=== PATIENT | female | born 1980 ===

== ENCOUNTER 2024-06-02 16:27 | Emergency (ER) | payer MEDICAID, SELFPAY ==
--- OUTSIDE RECORDS SUMMARY | 2024-06-02 19:07 | XMS_ITS ---
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 Generated for Printi ng/Ashley/eTransmitting on:?06/02/2024 07:07 PM EDT
--- OUTSIDE RECORDS SUMMARY | 2024-06-02 19:07 | XMS_ITS | Clinical Summary ---
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 Name Role Phone Unavailable Primary Care Provider Unavailabl e Encounters Date Type Department Care Team Description 04/24/2024 Population Health Risk Score [facility] ([facility]) Department [address] [id number] Provider, Population Health Generic from Last 3 Months Immunizations Name Administration Dates Next Due Hep B, Adolescent or Pediatric 02/20/1996,1995 Hep B, adult 05/27/2009,10/06/1996 IPV 05/27/2009 Influenza, IIV3, injectable 11/06/2012,1 02/27/2010,11/24/2008,2005 Influenza, seasonal, injecta ble, preservative free 11/20/2023,11/09/2013 MMR 10/24/2012,05/27/2009 OPV, Trivalent 12/08/1982 Td (adult), 5 Lf tetanus tox oid, preservative free, adsorbed 12/16/1998 Tdap 11/20/2023,05/10/2009 Varicella 04/18/2015,05/27/2009 Social History Tobacco Use Types Packs/Day Years Used Date Smoking Tobacco: Never Assessed Comments Unknown Sex and Gender Information Value Date Recorded Sex Assigned at Female 11/20/2023 9:25 AM EDT Legal Sex Female 6:56 PM EDT Gender Identity Female 11/20/2023 9:25 AM EDT Sexual Orientation Official Use Only; I nformation not collected 11/20/2023 9:25 AM EDT Last Filed Vital Signs Vital Sign Reading Time Taken Comments Blood Pressure 116/81 12/23/2017 1:57 PM EST Pt c/o left gland pain + some pain in her ear. Pulse 84 12/23/2017 1:57 PM EST Pt c/o left gland pain + some pain in her ear. Temperature - - Respiratory Rate - - Oxygen Saturation 97% 12/23/2017 1:5 7 PM EST Pt c/o left gland pain + some pain in her ear. Inhaled Oxygen Concentration - - Weight 75.1 kg (165 lb 9.6 oz) 12/23/2017 1:57 PM EST Pt c/o left gland pain + some pain in her ear. Height 156.8 cm (5' 1.75 ) 12/23/2017 1 :57 PM EST Pt c/o left gland pain + some pain in her ear. Body Mass Index 30.54 12/23/2017 1:57 PM EST Plan of Treatment Health Maintenance Due Date Last Done Comments Depression Screening 1980 HIV Screening 1981 SDOH Screening 1981 Alcohol/Substance Use Screening 1993 Tobacco Screening 1993 Family Planning (PISQ) 1996 Hepatitis C Screening 09/09/1999 Pap Smear 2002 IPV Vaccines (3 of 3 - 4-dose series) 11/26/2009 05/27/2009, 12/08/1982 Cervical Cancer Screening 09/09/2011 HPV/Cotest 09/09/2011 Mammogram 2021 COVID-19 Vaccine ( - 2023- season) 2023 02/18/2021, 04/15/2020, 03/11/2020 Zoster Vaccines (1 of 2) 09/09/2031 DTaP/Tdap/Td Vaccines (4 - Td or Tdap) 11/19/2033 11/20/2023, 05/10/2009, 12/16/1998 RSV Patients and Patients Aged 60 years or older (1 - 1-dose 75+ series) 2056 Hepatitis B Vaccines Completed 05/27/2009, 10/06/1996, 02/20/1996, Additional history exists Influenza Vaccine Completed 11/20/2023, , 11/06/2012, Additional history exists HIB Vaccines Aged Out No longer eligi ble based on patient's age to complete this topic HPV Vaccines Aged Out No longer eligi ble based on patient's age to complete this topic Hepatitis A Vaccines Aged Out No long er eligible based on patient's age to complete this topic Meningococcal Vaccine Aged Out No adolfo ovidio eligible based on patient's age to complete this topic Pneumococcal Vaccine: Pediatrics (0 to 5 Years) and At-Risk Patients (6 to 49) Years) Aged Out No longer eligible based on patient's age to complete this topic RSV under 20 months Aged Out No longe r eligible based on patient's age to complete this topic Rotavirus Vaccines Aged Out No longer eligible based on patient's age to complete this topic Insurance
--- OUTSIDE RECORDS SUMMARY | 2024-06-02 19:07 | XMS_ITS | Continuity of Care Document ---
Author Organization [facility] Address [address] [place] [address] Phone Care Team Providers Care Licensed Staff Mft Name Role Phone William Marino MD Unavailable Unavailable Allergies, Adverse Reactions, Alerts Substance Reaction Status Criticality Cephalosporins Active No Informatio n Medications Medication Instructions Dosage Effective Dates (start - stop) Status Comments Zepbound 2.5 mg/0.5 mL subcutaneous pen injector inject (2.5MG) by subcutaneous route every week for 4 weeks 2.5 MG - Active trazodone 100 mg tablet take 1 to 2 tablet by oral route at bedtime as needed for insomnia - Active FreeStyle Lancets 28 gauge use to check BG twice daily as directed - Active metformin ER 500 mg tablet,extended release 24hr (osmotic) take 1 tablet by oral route every day with the evening meal 500 MG - Active ketoconazole 2 % topical cream apply by topical route 2 times every day to the affected area(s) as needed for rash Not Available - Active fluticasone propionate 50 mcg/actuation nasal spray,suspension spray 2 sprays by intranasal route every day in each nostril as needed - Active Voltaren Arthritis Pain 1 % topical gel apply (2G) by topical route 2 times every day to the affected area(s) as needed for pain 2 G - Active FreeStyle Lite Meter kit use to check BG daily - Active e11.9 DMT2 FreeStyle Lite Strips use to bg twice daily as directed - Active Alcohol Wipes use to check BG as directed - Active hydroxychloroquine 200 mg tablet take 2 tablets saturday -fridays and take 1 tablet daily saturdays and sundays - Active [facility] Swapna Liu [phone] hydroxychloroquine 200 mg tablet take 2 tablet by oral route sat-sat. take 1 tablet on saturday and saturday - Active [facility] Swapna Liu [phone] Procedures Procedure Date GLYCATED HEMOGLOBIN TEST OFFICE/OUTPATIENT VISIT, EST OFFICE/OUTPATIENT VISIT, EST OFFICE/OUTPATIENT VISIT, EST PHONE E/M BY PHYS 21-30 MIN GLYCATED HEMOGLOBIN TEST OFFICE/OUTPATIENT VISIT, EST OFFICE/OUTPATIENT VISIT, EST OFFICE/OUTPATIENT VISIT, EST Antigen Detect By Immunoassay Tech COVID -19 INFLUENZA ASSAY W/OPTIC STREP A ASSAY W/OPTIC OFFICE/OUTPATIENT VISIT, EST OFFICE/OUTPATIENT VISIT, EST OFFICE/OUTPATIENT VISIT, EST OFFICE/OUTPATIENT VISIT, EST OFFICE/OUTPATIENT VISIT, EST OFFICE/OUTPATIENT VISIT, EST OFFICE/OUTPATIENT VISIT, EST OFFICE/OUTPATIENT VISIT, EST Left W/O Being Seen Clinical Pharmacy GLUCOSE BLOOD TEST OFFICE/OUTPATIENT VISIT, EST OFFICE/OUTPATIENT VISIT, EST Left W/O Being Seen OFFICE/OUTPATIENT VISIT, EST OFFICE/OUTPATIENT VISIT, EST Obtaining screen pap smear DRAINAGE OF SKIN ABSCESS Surgical trays Procedure Only No E/M OFFICE/OUTPATIENT VISIT, EST STREP A ASSAY W/OPTIC OFFICE/OUTPATIENT VISIT, EST MEDICAL SERVICES AFTER HRS OFFICE/OUTPATIENT VISIT, EST OFFICE/OUTPATIENT VISIT, EST URINALYSIS, AUTO, W/O SCOPE OFFICE/OUTPATIENT VISIT, EST OFFICE/OUTPATIENT VISIT, EST INFLUENZA ASSAY W/OPTIC OFFICE/OUTPATIENT VISIT, EST OFFICE/OUTPATIENT VISIT, EST Left W/O Being Seen OFFICE/OUTPATIENT VISIT, EST OFFICE/OUTPATIENT VISIT, EST OFFICE/OUTPATIENT VISIT, EST Left W/O Being Seen AUDIT/DAST, 15-30 MIN OFFICE/OUTPATIENT VISIT, EST OFFICE/OUTPATIENT VISIT, EST GLYCATED HEMOGLOBIN TEST OFFICE/OUTPATIENT VISIT, EST ELECTROCARDIOGRAM, COMPLETE OFFICE/OUTPATIENT VISIT, EST GLYCATED HEMOGLOBIN TEST OFFICE/OUTPATIENT VISIT, EST OFFICE/OUTPATIENT VISIT, EST MEDICAL SERVICES AFTER HRS PREV VISIT, EST, AGE 18-39 OFFICE/OUTPATIENT VISIT, EST OFFICE/OUTPATIENT VISIT, EST OFFICE/OUTPATIENT VISIT, EST MEDICAL SERVICES AFTER HRS PULSE OX OFFICE/OUTPATIENT VISIT, EST MEDICAL SERVICES AFTER HRS PREV VISIT, EST, AGE 18-39 OFFICE/OUTPATIENT VISIT, EST MEDICAL SERVICES AFTER HRS OFFICE/OUTPATIENT VISIT, EST MEDICAL SERVICES AFTER HRS OFFICE/OUTPATIENT VISIT, EST PULSE OX OFFICE/OUTPATIENT VISIT, EST MEDICAL SERVICES AFTER HRS IMMUNIZATION ADMIN CHICKEN POX VACCINE, SC Immunization Only No E/M Required Obtaining screen pap smear OFFICE/OUTPATIENT VISIT, EST STREP A ASSAY W/OPTIC OFFICE/OUTPATIENT VISIT, EST OFFICE/OUTPATIENT VISIT, EST OFFICE/OUTPATIENT VISIT, EST FITTING OF SPECTACLES OFFICE/OUTPATIENT VISIT, EST REFRACTION EYE EXAM & TREATMENT PREVENTIVE COUNSELING, INDIV OFFICE/OUTPATIENT VISIT, EST OFFICE/OUTPATIENT VISIT, EST OFFICE/OUTPATIENT VISIT, EST OFFICE/OUTPATIENT VISIT, EST OFFICE/OUTPATIENT VISIT, EST STREP A ASSAY W/OPTIC OFFICE/OUTPATIENT VISIT, EST FITTING OF SPECTACLES REFRACTION EYE EXAM & TREATMENT PREVENTIVE COUNSELING, INDIV PREVENTIVE COUNSELING, INDIV OFFICE/OUTPATIENT VISIT, EST OFFICE/OUTPATIENT VISIT, EST DRAINAGE OF SKIN ABSCESS Surgical trays OFFICE/OUTPATIENT VISIT, EST OFFICE/OUTPATIENT VISIT, EST OFFICE/OUTPATIENT VISIT, EST PREV VISIT, EST, AGE 18-39 FITTING OF SPECTACLES FITTING OF SPECTACLES REFRACTION EYE EXAM, NEW PATIENT OFFICE/OUTPATIENT VISIT, EST OFFICE/OUTPATIENT VISIT, EST OFFICE/OUTPATIENT VISIT, EST NON BILLABLE MEDICATION OFFICE/OUTPATIENT VISIT, EST IMMUNIZATION ADMIN Obtaining screen pap smear TB INTRADERMAL TEST MMR VACCINE, SC ORAL POLIOVIRUS VACCINE CHICKEN POX VACCINE, SC HEP B VACCINE, ADULT, IM IMMUNE ADMIN H1N1 IM/NASAL TDAP VACCINE >7 IM MEASURE BLOOD OXYGEN LEVEL CYTOPATH, C/V, MANUAL FLU VACCINE, 3 YRS & >, IM THER/PROPH/DIAG INJ, SC/IM URINALYSIS NONAUTO W/O SCOPE URINALYSIS NONAUTO W/O SCOPE Advance Directives Directive Yes / No Effective Date File Name No Information Encounters Encounter Description Practice Location Reason(s) For Visit Diagnoses Date Provider Providers Copied on Encounter [facility], [address] [place] [address] 2,[address], [place], [place], [id number], tel:[phone] [facility] No Information 5 Mick Thomas. [address] [place] [address], [id number], [place]. tel:[phone] OFFICE/OUTPA TIENT VISIT, EST [facility], [address] [place] [address] 2,[address], [place], [place], [id number], [place] tel:[phone] Tele [facility] f/u (chief complaint) Pain, foot, right, chronicOther chronic painSjogren' s syndrome, with unspecified organ involvementO SA on CPAPControll ed type 2 diabetes mellitus without complication , without long-term current use of insulinAdjus tment disorder with depressed mood 5 Mick Thomas. [address] [place] [address], [id number], [place]. tel:[phone] Referring Provider: William Marino, [address] [place] [address], [id number]. tel:[phone] OFFICE/OUTPA TIENT VISIT, EST [facility], [address], [place], [place], [id number], [place] tel:[phone] Tele [facility] f/u (chief complaint) Sjogren's syndrome, with unspecified organ involvementC ontrolled type 2 diabetes mellitus without complication , without long-term current use of insulinAdjus tment disorder with depressed moodRashOSA on CPAP 5 [facility]. [address] [place] [address], [id number], [place]. tel:[phone] [facility], [address], [place], [place], [id number], [place] tel:[phone] [facility] No Information 4 [facility]. [address] [place] [address], [id number], [place]. tel:[phone] [facility], [address], [place], [place], [id number], [place] tel:[phone] [facility] No Information 4 Brandin Ahumada. [address], [place], [id number], [place]. tel:[phone] OFFICE/OUTPA TIENT VISIT, EST [facility], [address], [place], [place], [id number], [place] tel:[phone] Tele [facility] f/u (chief complaint) Sjogren's syndrome, with unspecified organ involvementC ontrolled type 2 diabetes mellitus without complication , without long-term current use of insulinAdjus tment disorder with depressed moodRashSnor ing 4 [facility]. [address] [place] [address], [id number], [place]. tel:[phone] PHONE E/M BY PHYS 21-30 MIN [facility], [address], [place], [place], [id number], [place] tel:[phone] Tele [facility] letter request (chief complaint) Controlled type 2 diabetes mellitus without complication , without long-term current use of insulinAdjus tment disorder with depressed moodSjogren' s syndrome, with unspecified organ involvement 4 [facility]. [address] [place] [address], [id number], . tel:[phone] OFFICE/OUTPA TIENT VISIT, EST [facility], [address] [facility] [facility] [address], [place], [id number], [place] tel:[phone] [facility] ov (chief complaint) Controlled type 2 diabetes mellitus without complication , without long-term current use of insulinAdjus tment disorder with depressed mood 4 Juancarlos Quinonez. [address] [place] [address], [id number], [place]. tel:[phone] OFFICE/OUTPA TIENT VISIT, EST [facility], [address] [facility] [address], [place], [id number], [place] tel:[phone] Tele [facility] f/u (chief complaint) Controlled type 2 diabetes mellitus without complication , without long-term current use of insulinAdjus tment disorder with depressed moodSjogren' s syndrome, with unspecified organ involvement 4 [facility]. [address] [place] [address], [id number], [place]. tel:[phone] [facility], [address] [facility] [address], [place], [place], [id number], [place] tel:[phone] [facility] No Information 4 [facility]. [address] [place] [address], [id number], [place]. tel:[phone] OFFICE/OUTPA TIENT VISIT, EST [facility], [address] [facility] [address], [place], [place], [id number], [place] tel:[phone] Tele [facility] f/u (chief complaint) Adjustment disorder with depressed moodSjogren' s syndrome, with unspecified organ involvementC ontrolled type 2 diabetes mellitus without complication , without long-term current use of insulin May- 4 [facility]. [address] [place] [address], [id number], [place]. tel:[phone] OFFICE/OUTPA TIENT VISIT, [facility], [address], [place], [place], [id number], [place] tel:[phone] Care .Persistent cough (chief complaint) Pain in throatNasal congestionAc jessica cough May-0 4 Madan Maricruz. [address] [place] [address], [id number], [place]. tel:[phone] OFFICE/OUTPA TIENT VISIT, [facility], [address], [place], [place], [id number], [place] tel:[phone] Tele [facility] follow up (chief complaint) Adjustment disorder with depressed mood May-0 4 [facility]. [address], [place], [id number], [place]. tel:[phone] OFFICE/OUTPA TIENT VISIT, [facility], [address], [place], [place], [id number], [place] tel:[phone] Tele [facility] telehealth f/u (chief complaint) Controlled type 2 diabetes mellitus without complication , without long-term current use of insulinAdjus tment disorder with depressed moodPalpitat ionsSjogren' s syndrome, with unspecified organ involvement 4 [facility]. [address] [place] [address], [id number], [place]. tel:[phone] OFFICE/OUTPA TIENT VISIT, [facility], [address], [place], [place], [id number], [place] tel:[phone] Tele [facility] palpitations (chief complaint)te lehealth f/u palpitations (chief complaint) Sjogren's syndrome, with unspecified organ involvementC ontrolled type 2 diabetes mellitus without complication , without long-term current use of insulinAdjus tment disorder with depressed moodPalpitat ions 4 [facility]. [address] [place] [address], [id number], [place]. tel:[phone] OFFICE/OUTPA TIENT VISIT, EST [facility], [address], [place], [place], [id number], [place] tel:[phone] Tele [facility] personal (chief complaint) Adjustment disorder with depressed moodSjogren' s syndrome, with unspecified organ involvementC ontrolled type 2 diabetes mellitus without complication , without long-term current use of insulin [address], [id number], [place]. tel:[phone] [facility], [address], [place], [place], [id number], [place] tel:[phone] [facility] No Information 4 Brandin Ahumada. [address] [place] [address], [id number], [place]. tel:[phone] OFFICE/OUTPA TIENT VISIT, EST [facility], [address], [place], [place], [id number], [place] tel:[phone] Tele [facility] telehealth f/u (chief complaint) Adjustment disorder with depressed moodSjogren' s syndrome, with unspecified organ involvementC ontrolled type 2 diabetes mellitus without complication , without long-term current use of insulinReflu x gastritis 3 [facility]. [address] [place] [address], [id number], [place]. tel:[phone] OFFICE/OUTPA TIENT VISIT, EST [facility], [address], [place], [place], [id number], [place] tel:[phone] Tele [facility] telehealth f/u (chief complaint) Pain in joint, multiple sitesControl led type 2 diabetes mellitus without complication , without long-term current use of insulinAdjus tment disorder with depressed moodSjogren' s syndrome, with unspecified organ involvement 3 [facility]. [address] [place] [address], [id number], [place]. tel:[phone] OFFICE/OUTPA TIENT VISIT, EST [facility], [address], [place], [place], [id number], [place] tel:[phone] Tele [facility] telehealth f/u (chief complaint) Pain in joint, multiple sitesControl led type 2 diabetes mellitus without complication , without long-term current use of insulinAdjus tment disorder with depressed mood 3 [facility]. [address] [place] [address], [id number], [place]. tel:[phone] [facility], [address], [place], [place], [id number], [place] tel:[phone] [facility] telehealth f/u (chief complaint) Controlled type 2 diabetes mellitus without complication , without long-term current use of insulin 3 [facility]. [address], [place], [id number], [place]. tel:[phone] [facility], [address], [place], [place], [id number], [place] tel:[phone] Tele [facility] Proc/trtmt not crd out d/t pt lv bef seen by [facility] Sep-0 3 Boom Russell. [address], [place], [id number]. tel:[phone] [facility], [address], [place], [place], [id number], [place] tel:[phone] [facility] diabetes (chief complaint)di abetes (chief complaint) Controlled type 2 diabetes mellitus without complication , without long-term current use of insulin 3 Pharmacy Clinical. . Consulting Provider: Sallie Brown, [address] [place] [address], [id number]. tel:[phone] OFFICE/OUTPA TIENT VISIT, EST [facility], [address], [place], [place], [id number], [place] tel:[phone] [facility] F/U DM (chief complaint) Controlled type 2 diabetes mellitus without complication , without long-term current use of insulin 3 Dany Wong. [address] [place] [address], [id number], [place]. tel:[phone] [facility], [address], [place], [place], [id number], [place] tel:[phone] [facility] Pain in unspecified joint 3 [facility]. [address] [place] [address], [id number], [place]. tel:[phone] OFFICE/OUTPA TIENT VISIT, [facility], [address], [place], [place], [id number], [place] tel:[phone] Tele [facility] telehealth f/u (chief complaint) Pain in joint, multiple sites 3 [place] William. [address] [place] [address], [id number], [place]. tel:[phone] [facility], [address], [place], [place], [id number], [place] tel:[phone] Tele [facility] Proc/trtmt not crd out d/t pt lv bef seen by [facility] 3 [place]. [address] [place] [address], [id number], [place]. tel:[phone] OFFICE/OUTPA TIENT VISIT, EST [facility], [address], [place], [place], [id number], [place] tel:[phone] [facility] follow up (chief complaint) Left upper quadrant painControll ed type 2 diabetes mellitus without complication , without long-term current use of insulinObstr uctive sleep apneaReflux gastritisOve rweightBody mass index (BMI) 29.0-29.9, adult 3 [facility]. [address] [place] [address], [id number], [place]. tel:[phone] OFFICE/OUTPA TIENT VISIT, EST [facility], [address], [place], [place], [id number], [place] tel:[phone] [facility] L side abdominal pain (chief complaint)L side (chief complaint) Left upper quadrant painChronic diarrhea 3 Eldon North. [address] [place] [address], [id number], [place]. tel:[phone] [facility], [address], [place], [place], [id number], [place] tel:[phone] [facility] Bartholin cyst (chief complaint) Encntr for administrative liaison exam (general) (routine) w/o abn findingsCyst of Bartholin's gland 3 Zoila Arceo. [address] [place] [address], [id number]. tel:[phone] OFFICE/OUTPA TIENT VISIT, EST [facility], [address], [place], [place], [id number], [place] tel:[phone] Tele [facility] telehealth f/u DMT2 (chief complaint) Controlled type 2 diabetes mellitus without complication , without long-term current use of insulinObstr uctive sleep apneaReflux gastritisLou d snoring 3 [facility]. [address] [place] [address], [id number], [place]. tel:[phone] OFFICE/OUTPA TIENT VISIT, EST [facility], [address], [place], [place], [id number], [place] tel:[phone] [facility] uc (chief complaint) Submandibula r lymphadenopa thy May- 3 No Information OFFICE/OUTPA TIENT VISIT, EST Tommy [facility], [address], [place], [place], [id number], [place] tel:[phone] Tele [facility] f/u DMT2 (chief complaint) Controlled type 2 diabetes mellitus without complication , without long-term current use of insulinAnxie tyObstructiv e sleep apneaReflux gastritisLou d snoring May- [address], [id number], . tel:[phone] OFFICE/OUTPA TIENT VISIT, EST [facility], [address], [place], [place], [id number], [place] tel:[phone] [facility] ov f/u cc (chief complaint) Controlled type 2 diabetes mellitus without complication , without long-term current use of insulinAnxie tyObstructiv e sleep apneaLoud snoringOverw eightBody mass index (BMI) 29.0-29.9, adultReflux gastritis May-[address], [id number], . tel:[phone] OFFICE/OUTPA TIENT VISIT, EST [facility], [address], [place], [place], [id number], [place] tel:[phone] [facility] GVN for 6 days (chief complaint)uc (chief complaint) Nabothian cyst Apr- 3 No Information [facility], [address] [facility] [address], [place], [place], [id number], [place] tel:[phone] [facility] injury, unspecified laterality, initial encounter 3 [facility]. [address] [place] [address], [id number], [place]. tel:[phone] OFFICE/OUTPA TIENT VISIT, [facility], [address], [place], [place], [id number], [place] tel:[phone] Tele [facility] tele (chief complaint) Diverticulit is [address], [id number], [place]. tel:[phone] OFFICE/OUTPA TIENT VISIT, [facility], [address], [place], [place], [id number], [place] tel:[phone] [facility] f/u labs (chief complaint) Controlled type 2 diabetes mellitus without complication , without long-term current use of insulinAnxie tyObstructiv e sleep apneaLiver disease, unspecifiedO verweightBod y mass index (BMI) 29.0-29.9, adult 2 [facility]. [address] [place] [address], [id number], [place]. tel:[phone] OFFICE/OUTPA TIENT VISIT, [facility], [address], [place], [place], [id number], [place] tel:[phone] Tele [facility] tele (chief complaint) Controlled type 2 diabetes mellitus without complication , without long-term current use of insulinAnxie tyObstructiv e sleep apneaLiver disease, unspecifiedB ilateral chronic knee painPain in left kneeOther chronic pain 2 [facility]. [address] [place] [address], [id number], [place]. tel:[phone] [facility], [address] [facility], [place], [place], [id number], [place] tel:[phone] Tele [facility] tele (chief complaint) Controlled type 2 diabetes mellitus without complication , without long-term current use of insulinAnxie tyObstructiv e sleep apneaLiver disease, unspecifiedP irene/trtmt not crd out d/t pt lv bef seen by [facility] prov Oct- 1 [facility]. [address] [place] [address], [id number], [place]. tel:[phone] OFFICE/OUTPA TIENT VISIT, [facility], [address], [place], [place], [id number], [place] tel:[phone] Tele [facility] tele (chief complaint) Controlled type 2 diabetes mellitus without complication , without long-term current use of insulinAnxie tyObstructiv e sleep apneaLiver disease, unspecified 1 [facility]. [address] [place] [address], [id number], [place]. tel:[phone] OFFICE/OUTPA TIENT VISIT, [facility], [address], [place], [place], [id number], [place] tel:[phone] Tele [facility] televisit (chief complaint) Controlled type 2 diabetes mellitus without complication , without long-term current use of insulinAnxie tyObstructiv e sleep apneaLiver disease, unspecified 0 [facility]. [address] [place] [address], [id number], [place]. tel:[phone] OFFICE/OUTPA TIENT VISIT, [facility], [address], [place], [place], [id number], [place] tel:[phone] Tele [facility] televisit (chief complaint) Controlled type 2 diabetes mellitus without complication , without long-term current use of insulinAnxie tyObstructiv e sleep apneaLiver disease, unspecifiedH istory of bilateral tubal ligation Oct- 0 [facility]. [address] [place] [address], [id number], [place]. tel:[phone] [facility], [address] [facility] [address], [place], [place], [id number], [place] tel:[phone] Tele [facility] Proc/trtmt not crd out d/t pt lv bef seen by [facility] Oct- 0 Sandro Rekia. [address] [place], [place], [id number], [place]. tel:[phone] OFFICE/OUTPA TIENT VISIT, EST [facility], [address] [address], [place], [place], [address], [place] tel:[phone] Tele [facility] TELEVISIT (chief complaint) Liver disease, unspecifiedO bstructive sleep apneaAnxiety Controlled type 2 diabetes mellitus without complication , without long-term current use of insulin 0 [facility]. [address] [place] [address], [id number], [place]. tel:[phone] OFFICE/OUTPA TIENT VISIT, EST [facility], [address] [facility],[address], [place], [place], [id number], [place] tel:[phone] Tele [facility] TELEVISIT (chief complaint) Obstructive sleep apneaLiver disease, unspecifiedP rediabetesAn xiety 0 [facility]. [address] [place] [address], [id number], [place]. tel:[phone] OFFICE/OUTPA TIENT VISIT, EST [facility], [address] [facility] [address], [place], [place], [id number], [place] tel:[phone] [facility] tiredness (chief complaint) Liver disease, unspecifiedA cute gastritis without hemorrhage, unspecified gastritis typePrediabe tesChronic midline low back pain without sciaticaObst ructive sleep apnea May-0 9 [facility]. [address] [place] [address], [id number], [place]. tel:[phone] Referring Provider: William Marino, [address] [place] [address], [id number]. tel:[phone] OFFICE/OUTPA TIENT VISIT, EST [facility], [address] [facility] [address], [place], [place], [id number], [place] tel:[phone] [facility] Palpitation (chief complaint) Palpitations Acute gastritis without hemorrhage, unspecified gastritis type 9 Odilia Yuri Dilys. [address] [place] [address], [id number], [place]. tel:[phone] Referring Provider: William Marino, [address] [place] [address], [id number]. tel:[phone] OFFICE/OUTPA TIENT VISIT, EST [facility], [address] [facility] [address], [place], [place], [id number], [place] tel:[phone] [facility] initial visit (chief complaint) Liver disease, unspecifiedA cute gastritis without hemorrhage, unspecified gastritis typePrediabe edd 8 [place] [facility]. [address] [place] [address], [id number], [place]. tel:[phone] Referring Provider: William Marino, [address] [place] [address], [id number]. tel:[phone] OFFICE/OUTPA TIENT VISIT, EST [facility], [address] [facility] [address], [place], [place], [id number], [place] tel:[phone] [facility] No Information 8 [facility]. [address] [place] [address], [id number], [place]. tel:[phone] PREV VISIT, EST, AGE 18-39 [facility], [address] [facility] [address], [place], [place], [id number], [place] tel:[phone] [facility] preventive exam (chief complaint)ab dominal pain (chief complaint) Encounter for general adult medical examination with abnormal findingsLive r disease, unspecifiedA cute gastritis without hemorrhage, unspecified gastritis typeBody mass index (BMI) 31.0-31.9, adult 8 No Information OFFICE/OUTPA TIENT VISIT, [facility], [address] [facility] [address], [place], [place], [id number], [place] tel:[phone] [facility] R ankle (chief complaint) Moderate right ankle sprain, initial encounter 7 Docriselda Hoang. [address] [place], [place], [id number], [place]. tel:[phone] OFFICE/OUTPA TIENT VISIT, [facility], [address] [facility], [place], [place], [id number], [place] tel:[phone] [facility] foot pain (chief complaint) Moderate right ankle sprain, initial encounter 7 No Information OFFICE/OUTPA TIENT VISIT, [facility], [address] [facility], [place], [place], [address], [place] tel:[phone] [facility] Low back pain (chief complaint) Acute left-sided low back pain without sciatica 7 No Information OFFICE/OUTPA TIENT VISIT, [facility], [address] [facility] [address], [place], [place], [id number], [place] tel:[phone] [facility] abdominal pain (chief complaint)di zziness (chief complaint) DizzinessLUQ abdominal pain 6 Docriselda Hoang. [address] [place], [place], [id number], [place]. tel:[phone] [facility], [address] [facility] [address], [place], [place], [id number], [place] tel:[phone] [facility] Chronic gastritis without bleeding, unspecified gastritis type 6 No Information PREV VISIT, EST, AGE 18-39 [facility], [address] [facility] [address], [place], [place], [address], [place] tel:[phone] [facility] preventive exam (chief complaint) Encounter for general adult medical examination with abnormal findingsExce ssive sleepinessGa llstonesObes ity (BMI 30.0-34.9)Ch ronic nonalcoholic liver diseasePredi abetes 6 No Information OFFICE/OUTPA TIENT VISIT, EST [facility], [address] [facility] [address], [place], [place], [id number], [place] tel:[phone] [facility] Follow Up of Abdominal pain (chief complaint)Fo llow Up of u/s results (chief complaint) RUQ pain 6 Dobles Natalya. [address] [place], [place], [id number], [place]. tel:[phone] OFFICE/OUTPA TIENT VISIT, EST [facility], [address] [facility] [address], [place], [place], [id number], [place] tel:[phone] [facility] Follow Up of [facility] Germaine on 08/27/15 (chief complaint) Acute gastritis without hemorrhage, unspecified gastritis type 6 Dobles Natalya. [address] [place], [place], [id number], [place]. tel:[phone] OFFICE/OUTPA TIENT VISIT, EST [facility], [address] [facility] [address], [place], [place], [address], [place] tel:[phone] [facility] abdominal pain (chief complaint)na useas (chief complaint) Acute gastritis without hemorrhage, unspecified gastritis type 6 Dobles Natalya. [address] [place], [place], [id number], [place]. tel:[phone] OFFICE/OUTPA TIENT VISIT, EST [facility], [address] [facility] [address], [place], [place], [address], [place] tel:[phone] [facility] L ear pain (chief complaint)co ugh (chief complaint) URI, acuteLeft otitis media, unspecified chronicity, unspecified otitis media type 6 Docriselda Hoang. [address] [place], [place], [id number], [place]. tel:[phone] [facility], [address] [facility] [address], [place], [place], [address], [place] tel:[phone] [facility] update vaccines (chief complaint) Encounter for immunization 6 No Information OFFICE/OUTPA TIENT VISIT, [facility], [address] [place] [address] 2,[address], [place], [place], [id number], [place] tel:[phone] [facility] pap smear (chief complaint) Encounter for gynecologica l examination without abnormal findingEncou nter for screening for malignant neoplasm of cervix 6 Kostecki Marielos. [address] [place], [place], [id number]. tel:[phone] [facility], [address] [place] [address] 2,[address], [place], [place], [address], [place] tel:[phone] [facility] No Information 6 No Information OFFICE/OUTPA TIENT VISIT, [facility], [address] [place] [address] 2,[address], [place], [place], [address], [place] tel:[phone] [facility] sore throat (chief complaint) Strep pharyngitis 5 No Information OFFICE/OUTPA TIENT VISIT, [facility], [address] [place] [address] 2,[address], [place], [place], [address], [place] tel:[phone] [facility] Sinus Sx (chief complaint) Acute sinusitis, unspecified 5 Jocelin Hoang. [address] [place], [place], [id number], [place]. tel:[phone] OFFICE/OUTPA TIENT VISIT, EST [facility], [address] [facility] [address], [place], [place], [address], [place] tel:[phone] [facility] No Information Nov-0 - 5 Emigdio Irizarry. [address] [facility], [place], [place], [id number]. tel:[phone] [facility], [address] [facility] [address], [place], [place], [address], [place] tel:[phone] [facility] No Information Oct-2 5 No Information OFFICE/OUTPA TIENT VISIT, EST [facility], [address] [facility] [address], [place], [place], [address], [place] tel:[phone] [facility] chronic conditions (chief complaint)ob esity (chief complaint) Diarrhea, unspecifiedL iver disease, unspecified Oct-0 9 5 No Information [facility], [address] [facility] [address], [place], [place], [address], [place] tel:[phone] [facility] routine exam (chief complaint) Regular astigmatism, bilateral Oct-0 5 No Information PREVENTIVE COUNSELING, INDIV [facility], [address] [facility] [address], [place], [place], [address], [place] tel:[phone] [facility] Pre Counseling/T esting (chief complaint) Human immunodefici ency virus (hiv) counseling Sep-0 5 No Information [facility], [address] [place] [address] 2,[address], [place], [place], [address], [place] tel:[phone] [facility] Chronic diarrheaUnsp ecified chronic liver disease without mention of alcohol Sep- 5 No Information OFFICE/OUTPA TIENT VISIT, EST [facility], [address] [facility] [address], [place], [place], [id number], [place] tel:[phone] [facility] Follow Up of result (chief complaint)di arrhea (chief complaint) Chronic diarrheaStea tohepatitisF olliculitis 2- 5 No Information [facility], [address] [facility] [address], [place], [place], [address], [place] tel:[phone] [facility] Elevated LFTsAbdomina l pain, right lateral 5- 5 No Information OFFICE/OUTPA TIENT VISIT, [facility], [address] [address],[address], [place], [place], [address], [place] tel:[phone] [facility] urinary symptoms (chief complaint) UTI (urinary tract infection)RL Q abdominal pain 0- 5 No Information OFFICE/OUTPA TIENT VISIT, [facility], [address] [facility] [address], [place], [place], [address], [place] tel:[phone] [facility] Dysuria (chief complaint) Dysuria 7- 5 Kostecki Marielos. [address] [place], [place], [id number]. tel:[phone] OFFICE/OUTPA TIENT VISIT, [facility], [address] [facility] [address], [place], [place], [address], [place] tel:[phone] [facility] No Information - 5 Papa Edie. [address] [place], [place], [id number]. tel:[phone] OFFICE/OUTPA TIENT VISIT, [facility], [address] [facility] [address], [place], [place], [address], [place] tel:[phone] [facility] No Information 6- 5 Papa Edie. [address] [place], [place], [id number]. tel:[phone] OFFICE/OUTPA TIENT VISIT, EST [facility], [address] [facility] [address], [place], [place], [address], [place] tel:[phone] [facility] sore throat (chief complaint) Pharyngitis 4 Brady Snow. [address] [facility], [place], [place], [address]. tel:[phone] [facility], [address], [place], [place], [address], [place] tel:[phone] [facility] No Information 4 No Information [facility], [address] [facility] [address], [place], [place], [address], [place] tel:[phone] [facility] No Information 4 No Information [facility], [address], [place], [place], [address], [place] tel:[phone] [facility] a comprehensiv e exam (chief complaint) Regular astigmatismO ther chronic allergic conjunctivit is 4 No Information PREVENTIVE COUNSELING, INDIV [facility], [address] [facility] [address], [place], [place], [address], [place] tel:[phone] [facility] Post Counseling/r esults (chief complaint) Human immunodefici ency virus (hiv) counseling 4 No Information PREVENTIVE COUNSELING, INDIV [facility], [address] [facility] [address], [place], [place], [address], [place] tel:[phone] [facility] Pre Counseling/T esting (chief complaint) Human immunodefici ency virus (hiv) counseling 4 No Information OFFICE/OUTPA TIENT VISIT, EST [facility], [address] [facility], [place], [place], [address], [place] tel:[phone] [facility] f/u I+D of Bartholins (chief complaint) Abscess of bartholin's gland 3 Fidenciotecki Marielos. [address] [place] [address], [id number]. tel:[phone] OFFICE/OUTPA TIENT VISIT, [facility], [address] [facility] [address], [place], [place], [address], [place] tel:[phone] [facility] f/u labial I+D (chief complaint) Abscess of bartholin's gland 3 Zoila Arceo. [address] [place] [address], [id number]. tel:[phone] [facility], [address] [place] [address] 2,[address], [place], [place], [address], [place] tel:[phone] [facility] vaginal cyst (chief complaint) Cyst of bartholin's glandAbscess of bartholin's gland 3 Zoila Arceo. [address] [place] [address], [id number]. tel:[phone] OFFICE/OUTPA TIENT VISIT, [facility], [address] [address],[address], [place], [place], [address], [place] tel:[phone] [facility] sinus symptoms (chief complaint) URI (upper respiratory infection) 3 No Information OFFICE/OUTPA TIENT VISIT, [facility], [address] [facility] [address], [place], [place], [address], [place] tel:[phone] [facility] abscess (chief complaint) Inflammatory disease of breast 3 Jocelin Hoang. [address] [place] [address], [id number], [place]. tel:[phone] OFFICE/OUTPA TIENT VISIT, [facility], [address] [place] [address] 2,[address], [place], [place], [address], [place] tel:[phone] [facility] abscess (chief complaint) Breast abscess 3 Jocelin Hoang. 19 [facility], [place], [place], [address], [place]. tel:[phone] PREV VISIT, EST, AGE 18-39 [facility], [address] [facility], [place], [place], [address], [place] tel:[phone] [facility] preventive exam (chief complaint)we ight gain (chief complaint)ch sowmya in stools (chief complaint) ObesityIrrit able bowel syndrome with constipation and diaRoutine general medical examination at [facility] Medical Exam 3 No Information [facility], [address] [place] [address] 2,[address], [place], [place], [id number], [place] tel:[phone] [facility] No Information 3 No Information [facility], [address], [place], [place], [address], [place] tel:[phone] [facility] No Information 3 No Information [facility], [address] [facility], [place], [place], [address], [place] tel:[phone] [facility] a comprehensiv e exam (chief complaint) Astigmatism, unspecified 3 No Information OFFICE/OUTPA TIENT VISIT, EST [facility], [address] [facility] [address], [place], [place], [address], [place] tel:[phone] [facility] abdominal pain (chief complaint) Lumbar radiculopath y 3 Milli Rosa. [address] [place] [address], [id number], [place]. tel:[phone] OFFICE/OUTPA TIENT VISIT, EST [facility], [address] [place] [address] 2,[address], [place], [place], [address], [place] tel:[phone] [facility] Neck Pain (chief complaint) ObesityCervi calgia 2 No Information OFFICE/OUTPA TIENT VISIT, EST [facility], [address] [facility] [address], [place], [place], [address], [place] tel:[phone] [facility] cold symptoms (chief complaint) URI, acute 2 No Information OFFICE/OUTPA TIENT VISIT, EST [facility], [address] [facility] [address], [place], [place], [address], [place] tel:[phone] [facility] back pain (chief complaint)ob esity (chief complaint) Lumbar strainObese 2 No Information [facility], [address] [facility] [address], [place], [place], [address], [place] tel:[phone] [facility] Abscess of bartholin's gland 2 No Information [facility], [address] [facility] [address], [place], [place], [address], [place] tel:[phone] [facility] No Information 1 No Information [facility], [address] [facility] [address], [place], [place], [address], [place] tel:[phone] [facility] Screening examination for pulmonary tuberculosis 1 No Information [facility], [address] [facility] [address], [place], [place], [address], [place] tel:[phone] [facility] No Information 1 Z-Converted Provider. . [facility], [address] [facility] [address], [place], [place], [address], [place] tel:[phone] [facility] Overweight 0- 0 No Information [facility], [address] [facility] [address], [place], [place], [address], [place] tel:[phone] [facility] No Information May- 6-201 0 Z-Converted Provider. . [facility], [address] [facility],[address], [place], [place], [address], [place] tel:[phone] [facility] No Information Apr- 0-201 0 Z-Converted Provider. . [facility], [address] [facility],[address], [place], [place], [address], [place] tel:[phone] [facility] NEED FOR PROPHYLACTIC VACCINATION AND INOCULATION, INFLUENZA Apr- 0-201 0 No Information [facility], [address] [facility], [place], [place], [address], [place] tel:[phone] [facility] No Information 8 0 Jocelin Hoang. [address] [place] [address], [id number], [place]. tel:[phone] [facility], [address] [facility],[address], [place], [place], [address], [place] tel:[phone] [facility] No Information 9 No Information [facility], [address] [facility],[address], [place], [place], [address], [place] tel:[phone] [facility] No Information 4 9 Z-Converted Provider. . [facility], [address] [facility],[address], [place], [place], [address], [place] tel:[phone] [facility] No Information 2 9 [employer]. [address] [place] [address], [id number], [place]. tel:[phone] [facility], [address] [facility] [address], [place], [place], [address], [place] tel:[phone] [facility] No Information 9 Kosteckgeorgette Marielos. [address] [facility] [place], [address]. tel:[phone] [facility], [address] [facility] [address], [place], [place], [address], [place] tel:[phone] [facility] No Information 9 No Information [facility], [address] [facility] [address], [place], [place], [address], [place] tel:[phone] [facility] Routine general medical examination at a health care facilityRout ine gynecologica l examination 7 No Information [facility], [address] [facility] [address], [place], [place], [address], [place] tel:[phone] [facility] Other general counseling and advice on contraceptiv e management 4 No Information Family History Family Member Type Diagnosis Age At Onset Mother Problem (finding) Obesity Mother Problem (finding) raised blood lipids Father Problem (finding) hypertension Mother Problem (finding) hypertension Father Problem (finding) raised blood lipids Immunizations Vaccine Date Status Comments Tdap administered Note: IMM Info from [facility] ; Source: Other Provider Flu-IIV3,p-free administered Note: IMM In fo from [facility] ; Source: Other Provider COVID-19 Moderna pending Note: IMM I nfo from [facility] ; Source: Other Provider COVID-19 Moderna unknown Source: Oth er Registry COVID-19 Moderna administered Source: Oth er Registry Influenza virus vaccine, injectable, quadrivalent, split virus, preservative free, 3 years or older Fluarix Quad not administered Source: New Immun ization Record Varicella administered Source: New Imm unization Record Influenza, seasonal, injectable, preservative free, 3 yrs or older administered Note: [facility] - [facility]t ; Source: Other Registry Flu-IIV3(TIV) administered Note: IMM Info from [facility] ; Source: Other Provider MMR unknown Source: Other R egistry measles, mumps and rubella virus vaccine administered Note: old record ; S ource: Parents Written Record INFLUENZA VACCINE AGE 3 AND ABOVE administered Source: New Immuniza tion Record MMR unknown Source: Other R egistry Measles Mumps Rubella administered Source : New Immunization Record Polio (Injection) administered Source: Ne w Immunization Record Varicella (Chicken Pox) administered Sour ce: New Immunization Record HEPATITIS B (b) ADULT administered Source : New Immunization Record TDAP administered Source: New Imm unization Record H1N1 INJECTION administered Source: New I mmunization Record INFLUENZA VACCINE AGE 3 AND ABOVE administered Source: New Immuniza tion Record Influenza Vaccine administered Source: Ne w Immunization Record Td (adult) preservative free administered Note: patient old record ; Source: Parents Written Record hepatitis B vaccine, adult dosage administered Note: patient old re cord ; Source: Parents Written Record HepB-Peds unknown Source: Other R egistry Hep B, adolescent or pediatric, 3 dose administered Note: patient old re cord ; Source: Parents Written Record HepB-Peds unknown Source: Other R egistry hepatitis B vaccine, pediatric or pediatric/adolescent dosage administered Source: Ot r Registry tOPV (trivalent) unknown Source: Ot er Registry poliovirus vaccine, live, oral administered Note: patient old re cord ; Source: Parents Written Record Payers Payer name Insurance type Covered constitution party ID Authoriza tion(s) [facility] [id number] Social History Type Description Quantity Date Captured Comments Alcohol Use Details Unknown Caffeine Use Details Unknown Tobacco Use Status No Information Smoking Status No Information Sex Female Sexual Orientation Straight or heterosexual Gender Identity Female Chief Complaint And Reason For Visit No Information Reason For Referral Reason For Referral No Information Plan Of Treatment Date Type Action Status Goal Lipid panel. Due on due Goal FOBT. Due on due Goal Pap/HPV testing. Due on due Goal Influenza vaccine. Due on due Goal Document SOGI In formation. Due on due Goal Diabetes Screening. Due on due Goal Tdap due Goal APE. Due on due Goal Unhealthy drug u se screening. Due on due Goal Td vaccine. Due on due Goal Tdap due Goal Td vaccine. Due on due Goal Lipid panel. Due on due Goal Pap/HPV testing. Due on due Goal FOBT. Due on due Goal Diabetes Screening. Due on due Goal Document SOGI In formation. Due on due Goal Unhealthy drug u se screening. Due on due Goal APE. Due on due Goal Influenza vaccine. Due on due Goal FOBT. Due on due Goal Diabetes Screening. Due on due Goal Pap/HPV testing. Due on due Goal Tdap due Goal Lipid panel. Due on due Goal APE. Due on due Goal Td vaccine. Due on due Goal Influenza vaccine. Due on due Goal Document SOGI In formation. Due on due Goal Unhealthy drug u se screening. Due on due Goal FOBT. Due on due Goal Unhealthy drug u se screening. Due on due Goal Document SOGI In formation. Due on due Goal Pap/HPV testing. Due on due Goal Lipid panel. Due on due Goal Tdap due Goal APE. Due on due Goal Influenza vaccine. Due on due Goal Td vaccine. Due on due Goal Diabetes Screening. Due on due Goal Influenza vaccine. Due on due Goal Unhealthy drug u se screening. Due on due Goal Tdap due Goal Td vaccine. Due on due Goal FOBT. Due on due Goal Diabetes Screening. Due on due Goal Pap/HPV testing. Due on due Goal Lipid panel. Due on due Goal APE. Due on due Goal Document SOGI In formation. Due on due Goal Lipid panel. Due on due Goal Document SOGI In formation. Due on due Goal Pap/HPV testing. Due on due Goal Td vaccine. Due on due Goal Diabetes Screening. Due on due Goal APE. Due on due Goal Influenza vaccine. Due on due Goal Unhealthy drug u se screening. Due on due Goal FOBT. Due on due Goal Tdap due Goal Pap/HPV testing. Due on due Goal Tdap due Goal Unhealthy drug u se screening. Due on due Goal Document SOGI In formation. Due on due Goal Influenza vaccine. Due on due Goal Lipid panel. Due on due Goal FOBT. Due on due Goal Td vaccine. Due on due Goal APE. Due on due Goal Diabetes Screening. Due on due Goal Tdap due Goal Document SOGI In formation. Due on due Goal FOBT. Due on due Goal Unhealthy drug u se screening. Due on due Goal APE. Due on due Goal Influenza vaccine. Due on due Goal Pap/HPV testing. Due on due Goal Lipid panel. Due on due Goal Diabetes Screening. Due on due Goal Td vaccine. Due on due Goal Document SOGI In formation. Due on due Goal Unhealthy drug u se screening. Due on due Goal Lipid panel. Due on due Goal APE. Due on due Goal Tdap due Goal FOBT. Due on due Goal Td vaccine. Due on due Goal Influenza vaccine. Due on due Goal Diabetes Screening. Due on due Goal Pap/HPV testing. Due on due Goal Unhealthy drug u se screening. Due on due Goal Lipid panel. Due on due Goal Tdap due Goal Influenza vaccine. Due on due Goal Td vaccine. Due on due Goal Diabetes Screening. Due on due Goal Document SOGI In formation. Due on due Goal APE. Due on due Goal Pap/HPV testing. Due on due Goal FOBT. Due on due Goal Td vaccine. Due on due Goal Influenza vaccine. Due on due Goal Document SOGI In formation. Due on due Goal FOBT. Due on due Goal Pap/HPV testing. Due on due Goal APE. Due on due Goal Lipid panel. Due on due Goal Diabetes Screening. Due on due Goal Tdap due Goal Unhealthy drug u se screening. Due on due Goal Tdap due Goal Lipid panel. Due on due Goal Document SOGI In formation. Due on due Goal Influenza vaccine. Due on due Goal Unhealthy drug u se screening. Due on due Goal Diabetes Screening. Due on due Goal Td vaccine. Due on due Goal FOBT. Due on due Goal APE. Due on due Goal Pap/HPV testing. Due on due Goal Pap/HPV testing. Due on due Goal Unhealthy drug u se screening. Due on due Goal APE. Due on due Goal FOBT. Due on due Goal Diabetes Screening. Due on due Goal Document SOGI In formation. Due on due Goal Tdap due Goal Td vaccine. Due on due Goal Lipid panel. Due on due Goal Influenza vaccine. Due on due Goal Tdap due Goal Td vaccine. Due on due Goal Lipid panel. Due on due Goal APE. Due on due Goal Influenza vaccine. Due on due Goal Diabetes Screening. Due on due Goal Unhealthy drug u se screening. Due on due Goal FOBT. Due on due Goal Document SOGI In formation. Due on due Goal Pap/HPV testing. Due on due Goal Unhealthy drug u se screening. Due on due Goal Influenza vaccine. Due on due Goal Tdap due Goal APE. Due on due Goal Lipid panel. Due on due Goal Diabetes Screening. Due on due Goal Td vaccine. Due on due Goal FOBT. Due on due Goal Pap/HPV testing. Due on due Goal Document SOGI In formation. Due on due Goal Unhealthy drug u se screening. Due on due Goal Document SOGI In formation. Due on due Goal Diabetes Screening. Due on due Goal Pap/HPV testing. Due on due Goal Td vaccine. Due on due Goal Lipid panel. Due on due Goal Tdap due Goal APE. Due on due Goal Influenza vaccine. Due on due Goal FOBT. Due on due Goal Lipid panel. Due on due Goal Influenza vaccine. Due on due Goal Diabetes Screening. Due on due Goal Tdap due Goal APE. Due on due Goal Unhealthy drug u se screening. Due on due Goal Td vaccine. Due on due Goal Pap/HPV testing. Due on due Goal Document SOGI In formation. Due on due Goal FOBT. Due on due Goal Diabetes Screening. Due on due Goal Tdap due Goal Td vaccine. Due on due Goal Unhealthy drug u se screening. Due on due Goal Document SOGI In formation. Due on due Goal Lipid panel. Due on due Goal Pap/HPV testing. Due on due Goal APE. Due on due Goal FOBT. Due on due Goal Influenza vaccine. Due on due Goal Pap/HPV testing. Due on due Goal Td vaccine. Due on due Goal Tdap due Goal Unhealthy drug u se screening. Due on due Goal FOBT. Due on due Goal Document SOGI In formation. Due on due Goal APE. Due on due Goal Diabetes Screening. Due on due Goal Influenza vaccine. Due on due Goal Lipid panel. Due on due Goal Lipid panel. Due on due Goal Tdap due Goal Influenza vaccine. Due on due Goal APE. Due on due Goal Document SOGI In formation. Due on due Goal Unhealthy drug u se screening. Due on due Goal Pap/HPV testing. Due on due Goal Td vaccine. Due on due Goal FOBT. Due on due Goal Diabetes Screening. Due on due Goal FOBT. Due on due Goal APE. Due on due Goal Tdap due Goal Lipid panel. Due on due Goal Pap/HPV testing. Due on due Goal Document SOGI In formation. Due on due Goal Influenza vaccine. Due on due Goal Unhealthy drug u se screening. Due on due Goal Diabetes Screening. Due on due Goal Td vaccine. Due on due Goal Document SOGI In formation. Due on due Goal APE. Due on due Goal FOBT. Due on due Goal Td vaccine. Due on due Goal Diabetes Screening. Due on due Goal Influenza vaccine. Due on due Goal Unhealthy drug u se screening. Due on due Goal Tdap due Goal Pap/HPV testing. Due on due Goal Lipid panel. Due on due Goal Tdap due Goal APE. Due on due Goal Pap/HPV testing. Due on due Goal Influenza vaccine. Due on due Goal Document SOGI In formation. Due on due Goal FOBT. Due on due Goal Lipid panel. Due on due Goal Unhealthy drug u se screening. Due on due Goal Td vaccine. Due on due Goal Diabetes Screening. Due on due Goal Document SOGI In formation. Due on due Goal Lipid panel. Due on due Goal Tdap due Goal Influenza vaccine. Due on due Goal Td vaccine. Due on due Goal Pap/HPV testing. Due on due Goal Unhealthy drug u se screening. Due on due Goal FOBT. Due on due Goal APE. Due on due Goal Diabetes Screening. Due on A due Goal Pap/HPV testing. Due on due Goal Td vaccine. Due on due Goal Tdap due Goal Lipid panel. Due on due Goal Document SOGI In formation. Due on due Goal Unhealthy drug u se screening. Due on due Goal Influenza vaccine. Due on due Goal APE. Due on due Goal Diabetes Screening. Due on A due Goal Td vaccine. Due on due Goal APE. Due on due Goal Lipid panel. Due on due Goal Unhealthy drug u se screening. Due on due Goal Pap/HPV testing. Due on due Goal Diabetes Screening. Due on A due Goal Tdap due Goal Document SOGI In formation. Due on due Goal Influenza vaccine. Due on due Goal Lipid panel. Due on due Goal Tdap due Goal HPV. Due on due Goal Influenza vaccine. Due on due Goal Document SOGI In formation. Due on due Goal APE. Due on due Goal Td vaccine. Due on due Goal Unhealthy drug u se screening. Due on due Goal Diabetes Screening. Due on A due Goal Lipid panel. Due on due Goal Tdap due Goal Pap/HPV testing. Due on due Goal Diabetes Screening. Due on A due Goal Unhealthy drug u se screening. Due on due Goal HPV. Due on due Goal Influenza vaccine. Due on due Goal APE. Due on due Goal Document SOGI In formation. Due on due Goal Td vaccine. Due on due Goal Lipid panel. Due on due Goal APE. Due on due Goal Document SOGI In formation. Due on due Goal Diabetes Screening. Due on A due Goal Unhealthy drug u se screening. Due on due Goal HPV. Due on due Goal Td vaccine. Due on due Goal Tdap due Goal Influenza vaccine. Due on due Goal Pap/HPV testing. Due on due Goal Pap/HPV testing. Due on due Goal Influenza vaccine. Due on due Goal Diabetes Screening. Due on A due Goal Td vaccine. Due on due Goal Document SOGI In formation. Due on due Goal APE. Due on due Goal HPV. Due on due Goal Unhealthy drug u se screening. Due on due Goal Lipid panel. Due on due Goal Tdap due Goal Diabetes Screening. Due on A due Goal Influenza vaccine. Due on due Goal Unhealthy drug u se screening. Due on due Goal Lipid panel. Due on due Goal APE. Due on due Goal Document SOGI In formation. Due on due Goal Tdap due Goal Td vaccine. Due on due Goal HPV. Due on due Goal Pap/HPV testing. Due on due Goal Influenza vaccine. Due on due Goal Td vaccine. Due on due Goal Pap/HPV testing. Due on due Goal Unhealthy drug u se screening. Due on due Goal Tdap due Goal HPV. Due on due Goal Document SOGI In formation. Due on due Goal Lipid panel. Due on due Goal Diabetes Screening. Due on due Goal APE. Due on due Goal Unhealthy drug u se screening. Due on due Goal Diabetes Screening. Due on due Goal Tdap due Goal Pap/HPV testing. Due on due Goal Lipid panel. Due on 027 due Goal Td vaccine. Due on due Goal Colonoscopy. Due on 023 due Goal Influenza vaccine. Due on due Goal HPV. Due on due Goal APE. Due on due Goal FOBT. Due on due Goal FIT-DNA. Due on due Goal Document SOGI In formation. Due on due Goal CT-Colonography. Due on due Goal Influenza vaccine. Due on due Goal Lipid panel. Due on 022 due Goal Diabetes Screening. Due on due Goal Unhealthy drug u se screening. Due on due Goal Td vaccine. Due on due Goal Pap/HPV testing. Due on due Goal APE. Due on due Goal Tdap due Goal HPV. Due on due Goal Document SOGI In formation. Due on due Goal Document SOGI In formation. Due on due Goal Tdap due Goal Pap/HPV testing. Due on due Goal Td vaccine. Due on due Goal Lipid panel. Due on due Goal Unhealthy drug u se screening. Due on due Goal Influenza vaccine. Due on due Goal Diabetes Screening. Due on due Goal HPV. Due on due Goal APE. Due on due Goal Dietary manageme nt education, guidance, and counseling completed Goal Tdap due Goal Pap/HPV testing. Due on due Goal Diabetes Screening. Due on due Goal Document SOGI In formation. Due on due Goal HPV. Due on due Goal Influenza vaccine. Due on due Goal Unhealthy drug u se screening. Due on due Goal APE. Due on due Goal Td vaccine. Due on due Goal Diabetes Screening. Due on due Goal APE. Due on due Goal Td vaccine. Due on due Goal Influenza vaccine. Due on due Goal Document SOGI In formation. Due on due Goal Pap/HPV testing. Due on due Goal Tdap due Goal Lipid panel. Due on due Goal Pap/HPV testing. Due on due Goal Document SOGI In formation. Due on due Goal Diabetes Screening. Due on due Goal APE. Due on due Goal Influenza vaccine. Due on due Goal Td vaccine. Due on due Goal APE. Due on due Goal Td vaccine. Due on due Goal Diabetes Screening. Due on due Goal Document SOGI In formation. Due on due Goal Lipid panel. Due on due Goal Tdap due Goal Influenza vaccine. Due on due Goal Pap/HPV testing. Due on due Goal Lipid panel. Due on due Goal APE. Due on due Goal Influenza vaccine. Due on due Goal Pap/HPV testing. Due on due Goal Td vaccine. Due on due Goal Tdap due Goal Diabetes Screening. Due on due Goal Document SOGI In formation. Due on due Goal Lipid panel. Due on due Goal Pap/HPV testing. Due on due Goal Diabetes Screening. Due on due Goal Document SOGI In formation. Due on due Goal Td vaccine. Due on due Goal APE. Due on due Goal Influenza vaccine. Due on due Goal Tdap due Goal Document SOGI In formation. Due on due Goal Influenza vaccine. Due on due Goal Td vaccine. Due on due Goal Pap/HPV testing. Due on due Goal Lipid panel. Due on due Goal Diabetes Screening. Due on due Goal APE. Due on due Goal Tdap due Goal Td vaccine. Due on due Goal Influenza vaccine. Due on due Goal Pap/HPV testing. Due on due Goal Document SOGI In formation. Due on due Goal APE. Due on due Goal Diabetes Screening. Due on due Goal Tdap due Goal Document SOGI In formation. Due on due Goal Pap/HPV testing. Due on due Goal APE. Due on due Goal Td vaccine. Due on due Goal Tdap. Due on due Goal Influenza vaccine. Due on due Goal Diabetes Screening. Due on due Goal Diabetes Screening. Due on due Goal APE. Due on due Goal Pap/HPV testing. Due on due Goal Tdap. Due on due Goal Influenza vaccine. Due on due Goal Td vaccine. Due on due Goal Influenza vaccine. Due on due Goal Tdap. Due on due Goal APE. Due on due Goal Diabetes Screening. Due on due Goal Td vaccine. Due on due Goal Pap/HPV testing. Due on due Goal APE. Due on due Goal Td vaccine. Due on due Goal Diabetes Screening. Due on A due Goal Pap/HPV testing. Due on due Goal Tdap. Due on due Goal Influenza vaccine. Due on due Goal Influenza vaccine. Due on due Goal Influenza vaccine. Due on due Goal APE. Due on due Goal Influenza vaccine. Due on due Goal APE. Due on due Goal Influenza vaccine. Due on due Goal APE. Due on due Referral Ordered: X-RAY EXAM OF FOOT MINIMUM 3 VIEWS Appointment date/timeframe: Elective-Pt Discretion ordered Referral Ordered: ECHO, TRANSTHORACIC W/DOPPLER, COMPLETE Appointment date/timeframe: 05/17/2023 ordered Referral Ordered: EVENT MONITOR UP TO 30 DAYS Appointment date/timeframe: 06/10/2023 ordered Referral Ordered: Optometry (related to Controlled type 2 diabetes mellitus without complication, without long-term current use of insulin) ordered Referral Ordered: Referrals: Optometry Appointment date/timeframe: Urgent <3 Weeks ordered Referral Ordered: Referrals: Rheumatology Appointment date/timeframe: Urgent <3 Weeks ordered Referral Ordered: US ABDOMEN LIMITED Left Appointment date/timeframe: 07/30/2022 ordered Referral Ordered: COLONOSCOPY AND BIOPSY Appointment date/timeframe: Routine <3 Months ordered Referral Ordered: Referrals: Sleep Clinic Appointment date/timeframe: 07/09/2023 ordered Referral Ordered: Ophthalmology (related to Eye injury, unspecified laterality, initial encounter) ordered Referral Ordered: Referrals: Ophthalmology Appointment date/timeframe: Elective-Pt Discretion ordered Referral Ordered: Pulmonary (related to Obstructive sleep apnea) ordered Referral Ordered: Referrals: Pulmonary Appointment date/timeframe: 2019 ordered Referral Ordered: Physical Therapy (related to Chronic midline low back pain without sciatica) ordered Referral Referred To: Physical Therapy Ordered: Referrals: Physical Therapy ordered Referral Referred To: [facility] Ordered: Referrals: Pulmonary. [facility] ordered Referral Ordered: Physical Therapy (related to Moderate right ankle sprain, initial encounter) ordered Referral Ordered: Physical Therapy (related to Dizziness) ordered Referral Ordered: Referrals: Physical Therapy. Consult ordered Referral Ordered: ENDOSCOPY, UPPER GI Appointment date/timeframe: 11/16/2015 ordered Referral Ordered: Referrals: sleep clinic. Evaluate and treat ordered Referral Ordered: Referrals: General Surgery. Consult ordered Referral Ordered: US ABDOMEN LIMITED Right Appointment date/timeframe: 09/02/2015 ordered Referral Ordered: Referrals: Gastroenterology. Evaluate and treat Appointment date/timeframe: 10/20/2014 ordered Referral Ordered: Referrals: General Surgery. Evaluate and treat Appointment date/timeframe: 10/04/2014 ordered Referral Ordered: US ABDOMEN COMPLETE Appointment date/timeframe: 09/10/2014 ordered Appointment SHELLIE FIERRO BOOKED Immunization COVID-19 Moderna ordered Future Order: Lab Order CBC With Differential/Platelet ([id number]), Sent on: Sent Future Order: Lab Order Comp. Il tabolic Panel (14) ([id number]), Sent on: Sent Future Order: Lab Order Hemoglob in A1c ([id number]), Sent on: Sent Future Order: Lab Order Lipid Pa raciel ([id number]), Sent on: Sent Future Order: Lab Order Microalb /Creat Ratio, Randm Ur ([id number]), Sent on: Sent Future Order: Lab Order TSH Rfx on Abnormal to Free T4 ([id number]), Sent on: Sent Future Order: Lab Order Vitamin D, 25-Hydroxy ([id number]), Sent on: Sent Future Order: Lab Order CBC With Differential/Platelet ([id number]), Sent on: Sent Future Order: Lab Order Comp. Me tabolic Panel (14) ([id number]), Sent on: Sent Future Order: Lab Order H. pylor i Breath Test ([id number]), Sent on: Sent Future Order: Lab Order Hemoglob in A1c ([id number]), Sent on: Sent Future Order: Lab Order Lipid Pa raciel ([id number]), Sent on: Sent Future Order: Lab Order TSH Rfx on Abnormal to Free T4 ([id number]), Sent on: Sent Future Order: Lab Order Vitamin D, 25-Hydroxy ([id number]), Sent on: Sent Future Order: Lab Order Vitamin B12 ([id number]), Sent on: Sent Future Order: Lab Order Folate ( Folic Acid), Serum ([id number]), Sent on: Sent Future Order: Lab Order CBC With Differential/Platelet ([id number]), Sent on: Sent Future Order: Lab Order Comp. Me tabolic Panel (14) ([id number]), Sent on: Sent Future Order: Lab Order Hemoglob in A1c ([id number]), Sent on: Sent Future Order: Lab Order Lipid Pa raciel ([id number]), Sent on: Sent Future Order: Lab Order Microalb /Creat Ratio, Rand Ur ([id number]), Sent on: Sent Future Order: Lab Order TSH Rfx on Abnormal to Free T4 ([id number]), Sent on: Sent Future Order: Lab Order Vitamin B12 ([id number]), Sent on: Sent Future Order: Lab Order Hemoglob in A1c ([id number]), Sent on: Sent Future Order: Lab Order Hepatic Function Panel (7) ([id number]), Sent on: Sent Future Order: Lab Order Sediment ation Rate-Westergren ([id number]), Sent on: Sent Future Order: Lab Order Microalb /Creat Ratio, Rand Ur ([id number]), Sent on: Sent Future Order: Lab Order Basic Me tabolic Panel (8) ([id number]), Sent on: Sent Future Order: Lab Order UA/M w/r flx Culture, Routine ([id number]), Sent on: Sent Future Order: Lab Order Lipid Pa raciel ([id number]), Sent on: Sent Future Order: Lab Order Hemoglob in A1c ([id number]), Sent on: Sent Future Order: Lab Order CBC With Differential/Platelet ([id number]), Sent on: Sent Future Order: Lab Order TSH Rfx on Abnormal to Free T4 ([id number]), Sent on: Sent Future Order: Lab Order Hepatic Function Panel (7) ([id number]), Sent on: Sent Future Order: Lab Order Cerulopl asmin ([id number]), Sent on: Sent Future Order: Lab Order Vitamin B12 ([id number]), Sent on: Sent Future Order: Lab Order Ferritin , Serum ([id number]), Sent on: Sent Future Order: Lab Order Folate ( Folic Acid), Serum ([id number]), Sent on: Sent Future Order: Lab Order Basic Me tabolic Panel (8) ([id number]), Sent on: Sent Future Order: Lab Order Folate ( Folic Acid), Serum ([id number]), Sent on: Sent Future Order: Lab Order Vitamin B12 ([id number]), Sent on: Sent Future Order: Lab Order CBC With Differential/Platelet ([id number]), Sent on: Sent Future Order: Lab Order Ferritin , Serum ([id number]), Sent on: Sent Future Order: Lab Order Actin (S mooth Muscle) Antibody ([id number]), Sent on: Sent Future Order: Lab Order Hemoglob in A1c (106645), Sent on: Sent Future Order: Lab Order Hepatic Function Panel (7) ([id number]), Sent on: Sent Future Order: Lab Order Microalb /Creat Ratio, Randm Ur ([id number]), Sent on: Sent Future Order: Lab Order PT/INR ([id number]), Sent on: Sent Future Order: Lab Order Cerulopl asmin ([id number]), Sent on: Sent Future Order: Lab Order CBC, Demetrio telet; No Differential ([id number]), Sent on: Sent History Of Present Illness Encounter Date Complaint History Of Prese nt Illness f/u I called Shellie f or f/u. VISIT BEGAN OVER THE PHONE AND WAS CONCLUDED IN PERSONShe reports that she is doing well. She has all her med refills. She lost her job. The day after our last appointment. The federal freeze made it happen. She knew it was going to happen since she had only been there 3m. Feeling OK. Better than when she was let go in September. Doing what she has to do w unemployment. [id number] foot issue - has been going on for monthsWhen she turns her foot toward the left side > right side she feels Started when she was getting something from under the bed and she twisted her foot and felt a ripping sensation. It is worse when she wears flatsShe can walk on it but can't turn her foot. Doesn't hurt when she wears sneakers but then afterward hurts a lot f/u I called Shellie f or f/u. She reports she is doing better. her body pain has been her biggest concern. she has an upcoming appt w Rheum 05/2024 and looks forward to seeing them. saw rheum 11/06/23 and felt sx related to fibromyalgia rather than worsening Sjrogen'shas been feeling a little sick this wk - some cold sweats, sore throathas done covid test and has been negative multiple timeswhite spots on neck+pain burning in feet - w/u w Rheum negative [id number] - has been overeating lately and has gained #20 telehealth f/u I called Shellie f or f/u. She reports that she is good. her body pain has been getting worse. she has an upcoming appt w Rheum and looks forward to seeing them. Has been getting more bruising without clear reason. has been feeling a little sick this wk - some cold sweats, sore throathas done covid test and has been negative multiple timeson her lower neck on the left side she has noticed white spots that randomly showed up - there are only 4she had seen them and they were very small before but they are getting more visiblenot itchy, no rednessnowhere else on her body, checked letter request I called Shellie f or f/u. She reports that she is OK. Wasn't feeling well last night so called out of work yesterday and today. Has been reddy and downhad an appt w EP 08/19/23 and felt this was extremely helpfuldau having more depression and suicidal thoughtsshe is trying to explain this to her job and the empathy isn't there and this has been stressing her a lotshe has been having nightmares with all the stressthey will be forcing her to go back into workshe is trying to get a letter and information for them ov 42 yo F presents today for f/u A1C . Lang: Alvarado ZBAPMH: DM2, adjustment disorder w/ depression, sjogren's syndrome Last A1C 6.4% in 04/2023. taking her diabetes meds. no side effects, trying to work on exercise & diet but been so stressed latelyshe also made appt today to discuss all her stressors w/ dr marino but he didnt have appt so said she would want to talk with any provider who works with him. doesnt have therapist so helpful to talk through what is going on with her. last time she spoke w/ her pcp she was managing mood well. now symptoms worsening w/ work stress. daughter is in school in [place] & has to go to summer school which changed everything. daughter tried to commit suicide and she has been working from home she is working from home right now and reduced schedule to support and care for her daughter. now theyre trying to change her work schedule and causing a lot of anxiety. she is feeling more anxious and crying more often. trying to stay strong for her daughter but its hard some times because she just wants to cry too. she is taking trazodone 1-2 pills, some nights when really bad or worried will take 100mg - 150mg. has buspirone at home takes as needed during panic attack, works well when she feels anxiety attack & 1 pill works well. trying to relax and hike with her sister. Wants to know results of palpitations: This is a Cardiac event monitor - 30 day for an indication of Palpitations. Findings: Activations per primary report unless otherwise specified here. There were 2 patient-activations for review other than baseline. These correlated to sinus rhythm without ectopy. No symptoms were reported with these activations. CONCLUSION: No significant arrhythmias. telehealth f/u I called Shellie f or f/u. She reports that she has had a busy morningher romain got in a fight at school so she had to go take care of that but now she is backshe has been under a lot of stress, she is taking her meds but has had significant pain still, has been resting but feels [id number]: 120s, nothing higher than that telehealth f/u I called Shellie f or f/u. She reports she is doing a little better. [id number] have been goodSleep: at least 6 hours most nightsTrazodone Tita has been staying at her sister's in [facility] with her and her daudau does not want to go back to schoolpsychiatrist and counselors are working with them - they are working with school on IEP to help her feel less overwhelmedshsindi has taken time for herself - gone hiking w , letting emotions outgoing out with romain regularly as geo feels like her romain is opening up moresaw rheum 05/01/23 and felt was stable, no changes, planned to f/u 11/01/23OSA - saw sleep clinic .Persistent cough Pt presents wi th ~ 4 day h/o ST.She then developed cough, nasal congestion.Cough has been consistent and worse at night with laying down. Denies any F/sweats/chills/ill contacts. follow up I called Shellie f or f/u. She reports a lot has been going on. She has been trying to keep herself sane and together. Within a week and a half her youngest romain tried to commit suicide 3 timesshe has been running and trying to helpshe is trying to keep everything together for everyoneshe has always been on the honor roll and getting good gradesthe first saturday this happened they thought it was just a seizure or a convulsionthen saturday tried again to commit suicide bc of this shellie has been out of workshe is planning to leave intermittent leave w her romain's doctorshe has started to take anxiety med more than ever bc she is so anxiouswould like ZACK telehealth f/u I called Shellie f or f/u. She reports that she is doing OK. DMT2 A1c 6.4 04/2023Metformin, JanuviaRight after she recovered from COVID she started to get palpitations / tachycardia - had it before but now it is more frequentseen by me tele and then came in for EKG in person on 04/18/23; EKG was WNLordered ECHO, Holterasked RN team to call Rheum to ask for plan for poss of hydroxychloroquine cardiac sfxLydia sent message to Rheum; they asked her how the EKG and gave her an appt on Wednesdaysjogren's syndrome: [facility]loroqu[facility]ometimes she does struggle to get up bc of body pain, this morning is pretty good palpitations telehealth f/u palpitations I ca lled Shellie for f/u. She reports that she is doing OK. Right after she recovered from COVID she started to get fast palpitations , tachycardia - had it before but now it is more frequentcould last for 2-3d and then slow down and come backthe last 3 nights, she has gotten very nervous and it makes her feel jitteryfirst time it happened it was in the middle of the night and it worried her so much she started cryingcan't tell exactly what brings it on, doesn't think she is always active or anxiousnot related to eating or going to the bathroomno feversdiarrhea is much better personal I called Shellie lyon or f/u. She reports that she has been pretty good, much better I have my days but I have been managing it. She is back to work and the office is tense for now bc of all the workRheumatologist following closely, on hydroxychloroquine HS (which helps to cut down on diarrhea)has been worse at night and brianna w the colder weatherworks to stay active DMT2 really good last night had a little RICO and checked bg and was 122FBG 120, 119has been working hard on diet / exercisetaking metformin and JanuviaSleep well with Trazodone HS telehealth f/u I called Shellie lyon or f/u. She reports that she has been good. Has been staying with her youngest sister in [place] my little getaway from regular daily life - has been working through [employer] w her sister and they have been talking a lot. Has been very beneficial to their relationship. Staying active. Has 2 more family members who she wants to sit and speak with - has a dinner nxt wk with one person and she is hoping that she gets visits in before the holidays. has appt 01/24/23 for eye examRheumatologist will be calling w blood work results. Has been having a lot of heartburn, much more than usualfeels very fatigued and plans to see Sleep Clinic for f/u PETE but doesn't feel financially can do thatDMT2 been better FB-150s, sometimes at 110-120s as well. has not seen any 200s since our last visit telehealth f/u I called Shellie lyon or f/u. She reports that she is doing OK. She is feeling better. Got to speak with team and this was very helpful. They are planning to send some information for outside as wait list at [facility] for therapy 5mhas decided to do FMLA, start date 01/08/23inc'd Amitriptyline 10>25mg daily 12/25/22f/u with me in 1w to consider SSRIRheum condition: Rheum thinks it is best not to dec hydroxychloroquine and diarrhea has cont'd. she is interested in dec'ing metforminhas appt 01/02/23 w [facility] and looking forward to thisshe is on Januvia 100mg daily telehealth f/u I called Shellie f or f/u. She reports that she has been struggling a little Trying to manage struggling - mom in [place] has had a lot more going on as wellhas been feeling emotionally drained, feeling downshe took off a week of vacation to spend with her mom and that was when she passed awayhasn't had time to really grieve / mentally process working to keep it togetherthinking maybe needs to take time off of work, managers are supportive but they are worried about herseeing grief counselor through jobbody pain- high LATA, seen by Alyon hydroxychloroquine is helping with her pain but is getting quite significant diarrheaHAs also [id number] been less under control w more pain and more stress telehealth f/u diabetes Pt presents to [facility] for Dm management with Sajan.Pt confirms taking: metformin Er 500mg - takes 4 tabs QPM with dinnerJanuvia 100mg - QAM with breakfast (only coffee)Rarely takes amitriptyline for sleepNo longer taking omeprazole. removed from med list today. Occasionally only taking metformin Er 500mg - 2 tablets at night if BG is <120. Next morning BG will be around 120-140Doesnt eat much later than 7.30pm.Feels sweaty, shaky, dizzy for past few weeks. Had readings of 88,once 70. Used to have headaches, blurry vision. Knew her BGs were high thenFrequent defecation for a few weeks. Started w/metformin, seemed to get better with start of Januvia, then worse again 1 month ago. Has frequent loose/watery stools, sometimes up to 6x per day.Recently also started hydroxychloroquine 1 month ago. BG readings since 09/26: 146, 144, 118, 111, 142, 132, 124, 160, 118, 110, 121Before dinner: 128, 88, 1262hrs PP Dinner: 159, 156Bedtime 192, 105, 176, 152, 142, 148, 119, 140 diabetes Managing with: O ral medications. F/U DM Pt. present in [facility] for DM & HTN management per provider POCPt. is doing good. Pt. c/o of tiredness, dizziness & tiredness. Yesterday was feeling a lot dizzy. Has constant ongoing nausea & diarrhea. Diarrhea is very watery, 5 times yesterday , this morning 2 times. Taking zofran for nausea, which is helping. Diarrhea is worse at least 3times/ week. Disrupts her during worknausea comes after eating. She is eating very less , gets full very fastpreviously did stool studies and they come out normal. stated that pcp said it could be stress. Pt. denies polydipsia, polyphagia, nausea, anorexia, wt. loss, lethargy, vision changes, tingling, abd discomfort, recurrent infection and delayed wound healing, shakiness, dizziness, sweatiness, weakness, and nervousness.Recalls BGL 120-130 in the morning Pt. doesn't SMBGL pp Pt. is taking metformin 2000mg w/ evening meal & januvia 100mg nilxdW6o from 07/10 at 9.7BGL today at 118BP today- 125/88, 87Only had coffee w/ brown sugar & milk at 7:40amDinner yesterday: white rice w/ beans, small piece of pork chop, small portions brkfst: joiner , egg cheese on wheat bagelWalks several hours/ day, 3-4, and sitting rest of time. telehealth f/u I called Shellie f or f/u. She reports that she is doing okShe continues with the abdominal painwhen rests enough, the pain goes away but if she starts to walk a lot or exercise the pain comes backthinks this is getting better now that trying to avoid movements that exacerbate itdoes wake up with pain in joints and musclesthe last 3 weeks or so has woken up w bad pain of wrist and it looked swollen; swelling got better and pain went away but now pain is back and swelling is back follow up Shellie is a 41yoF who presents for f/u ab painShe reports overall she is doing OKSaw AYAD 06/29/22 who referred to GI and ordered US which is hazel'd for 07/30/22then pain worsened in LLQ and LUQ and went to ED who thought it might be diverticulitis but Shellie did not feel it was consistent w that painthen got CT and US which showed fibroids and cyst on ovary; ed rx'd nausea meds to Natalie'sarahs had this pain on and off since when lost mom in early 2022no pain w rest but as soon as she walks she starts to get painlhuts to put pressure on itmoving hurts it, even turning over in bedno new diarrhea - has chronic loose stools w metforminwas sleeping on left side and went to turn; was early in hte morning; it started right when she was turning in bedfelt like it was cramps and thought it was her periodbeing on period or off period doesn't change painwhen voids she has discomforthas not had BM in 2 days -2022 L side Pt presents acco mpanied by her Sajan. Pain started May 26 or , it was mild, thought she was going to get period, then did get period, but now can't sleep on her left side, can't roll over or say on left side. Mostly stays down lower Thought she was constipated, but is on metformin, going to the bathroom a lot every time she eats.She is not eating well, gets filled up quick even if eats a little bit. At first came and went, then became constant for last 2 weeks. BM does not make it feel better or worse. Eating hurts in the upper part. Has been taking metformin for 3 years, started januvia 3rd week of May. Mom May 25. Started januvia May 25. No blood or black tar in stool. No changes for 3 years since staring metformin. Did not do any heavy lifting. No vomiting. Has had pain like that before. In the upper part on the left. Said she might have had an ulcer, is on omeprazole. That made the pain go away.Was taking a lot of motrin, Dr. Marino told her no, only tylenol. She stopped the motrin about a month ago, did not notice any difference in stomach pain. Does not drink alcohol. Has had H pylori testDoes get cramping pain in her lower abdomen on both sides before her period, runs to the back. No particular pains 2 weeks after getting her period. L side abdominal pain Bartholin cyst 41 yo SV D x 2 last 2003 LMP 05/30/22 s/p BTL for BC here for eval of ?rt Bartholin's cyst. Has had it for a while and it increases/decreases in terms of size and amount of sxs was worse a couple weeks ago and had appt with me for FU but mom so cancelled appt. Seen by me almost 10 yrs ago with infected right Bartholin's cyst and had I+D without recurrence of infection since. Last Pap 04/26 WNL neg HRHPV, neg gc/ct done 06/03; prior pap WNL 2010 also with neg HRHPV. Distant hx of abnl pap, not reviewed in detail today. With 12 yrs, together longer, has 2 children 21 and 14 yo. Is s/p BTL, nonsmoker no allergies. telehealth f/u DMT2 I called Pilar figueroa for f/u. She reports she is doing much much better. Shana got home so this makes home life easier. It is a good distraction from her mother's passing (Mom passed this past 05/24/22)RICO has continued - has had 3-4 since last we talked 06/01/22, which is better. she is not sleeping wellsnores loudlyreferred to pulm 05/17/22feels exhausted alwayshasn't tried amitriptyline yet bc didn't have money for copay to pick it up but her is going to pick it up for her [id number] issues w Januviametformin does cause significant diarrheaFB/22 169 / 1364/23 164 / 1404/24 63 / 140 ----- DOESN'T KNOW WHAT 63 came from, ate breakfast right away, no sx4/25 127 / 1544/26 1224/27 1105/1 142LAST VISIT 06/01/22FB-180s4/9 15905/23 15014 16405/26 120checking HS at timesHS: 235, 120 (didn't eat dinner); generally 180-230s05/24/22 126 (834p)05/27/22 132 (1017p)05/29 188 @930p4/ 235 905pnabolthian cystgiven appt w CHANELL 05/30/22 but NSH due to for mother uc Sat night glands started to get swollennow eyes hurtdenies Ear pain , nasal d/c and cough.covid negdenies seasonal allergies. telehealth f/u DMT2 I called Pilar henry for f/u. She reports that this week has been very hard. Mom passed this past 05/24/22Services Saturday and Saturday of this week 05/29/22 and 05/30/22overall she is hanging in there getting a lot of tension headache and not sleeping well [id number] FBG dailyFB-180s4/9 15014 120checking HS at timesHS: 235, 120 (didn't eat dinner); generally 180-230s05/24/22 126 (834p)05/27/22 132 (1017p)05/29 188 @930p4/19 235 905pstill voiding frequently stillshe is not sleeping wellsnores loudlyreferred to pulm 05/17/22feels exhausted alwaysnabolthian cystgiven appt w CHANELL 05/30/22 but NSH due to for mother ov f/u cc very stressedlyd henry's mother is very sick and they are in the process of waiting this has been causing her sugars to go up and down and all over the place did a DNR paper for her this past Saturdayfinds work very supportive, work not stressful, feels good at work - it is her get-awayshe is not sleeping wellsnores loudlyfeels exhausted alwaysupper left abdomen pain - was taking meds for this, ? ulcersfeels stomach is in knotsnot eating very much, feels full earlier than usual w being so stressedjoint pain everywhere for the last year or so, since aerly 2021when wakes up feels like she has been run overwrists, shoulders, hips, knees, elbows, anklesNabothian cyst - started 2 weeks agostarted as a yeast infection - started monistat x2d, then did not go away after day 3seen 05/03/[address] Duque ---- found to have nabothian cysttold to do warm baths and compresseslump keeps getting biggeris uncomfortable and mildly painfuldid have nabothian cyst in [id number] and was drained w AKIdid take abx and they helped w the painno appt w administrative liaison as of yetno fevers / chillsno discharge at the moment - noticed a small amount of green discharge a couple of days ago but checked and had not burst - no abnormal discharge since then; no vaginal itching is painful when directly examined still but better than before abx though is still growing uc Sat night had in tercoursethen Sun had burning and irritation vaginallyitching got worse with the urinescant vag d/ctues night started the monistat for a 7 day coursethe inner product does not hurtbut outside it hurtsnoticed a smalll bump on R side inner surface of vaginamany years ago had a gland that had to be drained on the L side with the balloon for 1 week. GVN for 6 days tele I called shellie f or f/ushe is doing OK thus afternoon / evening pelvic pain / ab pain - pain worsening slowly and went to bedwent to work saturday but then pain started to worsen on LLQ and left lower backfelt unable to walkwent to ED and was waiting for 7 hours - did CT scan which showed diverticulitisshe was rx'd abx and shellie completed the entire coursethen went out for dinner 07/02/21 and then had ice creamwithin an hour of finishing ice cream pain had returnedwas afraid of it worseningwoke up this AM and took Tylenol and took soup to avoid anything heavycontinues with some discomfort but nothing severeno fevers / chills f/u labs Shellie is a 40yoF who presents for f/u with her Shana Avelar. She reports that she is doing OK. Under a lot of stress due to 's chronic pain issues and trying to get seen by outside specialist. Has appt today to review labsdmt2 - taking metformin but only twice dailyfbg 200, 189, 155, 149, 147, 142, 157, 153, 143, 139, 152, 132, 143, 159, 136, 141, 131, 189, 1242hPP 121, 188, 82, 167, 171, 178, 139, 139, 100, 185AST/LT elevated - will plan to be working on diet and exercise. tele I called Shellie camron or f/u. She reports that she is doing OK. She has been good. Has ups and downs - found out her mom has cancer and needs chemonow mom is having side effects from chemo and they are dealing with themDMT2- doing better, has been working on diet / exercisefb, 1692hPPnot checking regularlyAnxiety is well controlled with PRN Buspar. Feeling ok but feels supported by familyworking to stay positive tele I called Shellie camron or f/u.she did not picker machine operator at 730a and I LVM. she did not picker machine operator at 1020a. she did not picker machine operator at 1040a and I LVM to reschedule. below prepared prior to the visit and should not be considered up to date: She reports that she is eating better / exercising more. Walking regularly. f/u DMT2: keeping control of sugars; would like rpt A1cfbs consistently; nothing >130stress- doing good, not extra anxietyPlans to come in for labs this week. tele I called Shellie lyon or f/u. She reports that she is eating better / exercising more. Walking regularly. f/u DMT2: keeping control of sugars; would like rpt A1cfbs consistently; nothing >130stress- doing good, not extra anxietyPlans to come in for labs this week. televisit The symptoms beg an year ago and generally lasts year. The symptoms are reported as being moderate. The symptoms occur constantly. The location is dmt2. The context of the symptoms include on metformin alone. She states the symptoms are chronic and are stable. TELEVISITI called Shellie for f/u. She reports that she is eating better / exercising more. She is happy and proud of wt loss. She is sleeping better, exercising more, having a better diet. 165>155 lbs over about 3 months. f/u DMT2: keeping control of sugarsfbg: all < 120 stillhome BP- does not hvae monitor happy to come in to see RN for bp check and labsExercise / diet: continues with excellent diet /e xercisehx donell liver, needs rpt labs, - pt will call clinic to schedule visit with rn televisit The symptoms beg an year ago and generally lasts year. The symptoms are reported as being moderate. The symptoms occur constantly. The location is PETE, DMT2. The context of the symptoms include asymptomatic. She states the symptoms are chronic and are stable. televisitI called Shellie for f/u. she reports she is doing well. she has been working on diet and exercise and this has improved her sugars greatly. [id number]: all < 160 except for 1 day. Doing her best to take Metformin 2x/d.she has been doing extra walking daily. control- hx BTL TELEVISIT The symptoms beg an year ago and generally lasts year. The symptoms are reported as being mild. The symptoms occur constantly. The location is DMT2. The context of the symptoms include Metformin alone. The symptoms are described as asymptomatic. Aggravating factors include Stress and Eating. Relieving factors include Medication. She states the symptoms are chronic and are stable. TELEVISITI called Shellie for f/u. She reports she is doing well and better than before. DMT2: FBG: <1202hPP: not checking but willing to. Meds: Metformin 850mg TID with meals.Improved diet significantly. Exercise: walking 5-6 days with at least 30 minutes right after work. Taking stress / anxiety medication which is helping. TELEVISIT The symptoms beg an 4 months ago and generally lasts 4 Months. The symptoms are reported as being moderate. The symptoms occur constantly. The location is RICO, donell BG. The context of the symptoms include stress. Aggravating factors include Stress. Relieving factors include Medication and Rest. She states the symptoms are acute and are of new onset. TELEVISITI called Shellie to re-establish care. She reports that she was doing very well until recently. The last 3-4 months she has been getting elevated BG for 2-3 days and then returns to normal; has been up to 290. She hasn't been sleeping well due to stress / anxiety. She then gets RICO and nausea with elevated BG. Taking Metformin HS 500mg as directed. PreDM/diet-controlled [id number]: last 3 days; 140-1501h PP: 200sHx PETE: doesn't have CPAP machine right now. Has tried using 's machine which did help her sleep. tiredness tiredness (comments) Shellie is a 37yoF who presents for f/u.She has a history of PreDM / diet-controlled DM. After having an A1c >7, she underwent diet / exercise and was able to drop it to 6.2 3 months later. She has continued some diet / exercise but not as intensely as before. She plans to restart this now that the weather is better. She would be willing to trial Metformin. She reports fatigue and low back pain. She would like a PT referral and a Pulm referral as she needs CPAP for a known history of PETE. Palpitation Shellie is a 37 yo female seen here with for series of palpitations for the past 4 days. She reports putting of a trip to the ED because it takes too long. She was encouraged by the to be seen at least by the PCP and that is what brings her in. Currently Asymptomatic. Also reports h/a associated with the current palpitations. Pain does not radiate to any part of the body, and rates score as 5/10. initial visit initial visit (comments) Shellie i s a 37yoF who presents to establish care today. She reports she has been feeling well except for cold symptoms. She reports cough and congestion x 5 days then fever on Saturday to 101. She continues with cough but no further fevers. She is taking PRN meds and drinking lots of liquids. PAP smear: NIL, HRHPV negative 04/2015. Through diet and exercise, she has been able to lose 15 lbs over the last 6 months, which she is very proud of. preventive exam Currently pregna nt: no. : 4. Parity: Term: 3. : 1. Livin. Patient is not contemplating . The patient states she uses tubal ligation for control. Last LMP was 04/11/2017. Her menses is regular. Negative for dysmenorrhea. Pertinent negatives include anxiety, depression and urinary incontinence.The patient states her exercise level is light. She has not been exposed to passive smoke. She does not drink alcohol. abdominal pain Onset: 3 Weeks. The severity of the problem is moderate. The problem has not changed. The symptoms are intermittent. The location is epigastric and left upper quadrant. The quality of the pain is colicky. These symptoms occur after meals. Symptoms are not aggravated by bowel movement. Symptoms are relieved by antacids. Pertinent negatives include fever. R ankle (comments) 36 yo female here 4 weeks out from right ankle sprain She is wearing boot, elevating and icing and using NSAID She continue with moderate pain Swelling slightly improved Negative xray in [place] where sprain occurred and in ED [facility] as well R ankle foot pain Onset: 1 week ag o. It occurs constantly and is stable. Location: right ankle (lateral). There is no radiation. The pain is sharp. Context: fell on stairs in [place]. The pain is aggravated by climbing (and descending) stairs, movement, walking and standing. The pain is relieved by brace/splint and elevation. Associated symptoms include bruising, decreased mobility and difficulty initiating sleep. Hand Dominance: right. Additional information: using walking boot and crutches. neg xrays immediately after fall in [place] and again upon arrival back to [place] [facility]. Low back pain Onset: gradual w ithout injury. Severity level is 7. Duration: > 1 hour. The problem is improving. It occurs persistently. Location of pain is lower back.There is no radiation of pain. The patient describes the pain as deep, localized, stabbing and throbbing. Context: following gallstone surgery. Symptoms are aggravated by ascending stairs, bending, changing positions, coughing, daily activities, descending stairs, lying/rest, pushing, sitting, sneezing, twisting and walking. Additional information: Patient had galblader removed one week ago. After the suregery she started to have severe paon on her back on the left side and felt a bump that was very tender. Today the bump is almost gone but the pain is still there and increases w/pressure. dizziness abdominal pain (comments) 35 yo female here with 3 day flair of LUQ /epigastric pain it has been ongoing for some time with eval to date with + gallstones and headed for removal 02/19 and EGD with mild esophagitis She is not clear what triggered pain She had taken omeprazole in past with good effect No vomiting but lots of nausea pressure like feeling in area that hurts even to lie on stomach dizziness (comments) She also no edd chronic dizziness for several months it is intermittent Today was really strong while at work and felt like she was going to fall She gets pale and sometimes sweaty She notes it can be triggered just by rolling over in bed abdominal pain preventive exam Currently pregna nt: no. : 4. Parity: Term: 3. : 1. Livin. Patient is not contemplating . The patient states she uses tubal ligation for control. Her menses is regular. Negative for dysmenorrhea. Pertinent negatives include anxiety.The patient states her exercise level is light. She has not been exposed to passive smoke. She does not drink alcohol. Follow Up of Abdominal pain Follow Up of u/s res ults (comments) 34 yo female here with ongoing epigastri c and RUQ pain She had recent u/s and here for results She has changed diet and notes is having less episodes of pain She has good pain control with omeprazole and tyl #3 No fever No vomitng U/S reviewed and showed moderate hepatic steatosis and mild hepatomegaly and multiple gallstones in a decompressed gallbladder and a slightly prominent common bile duct Follow Up of u/s results Follow Up of [facility] E.D. on 08/27/15 (comments) 34 yo female here in ED follow up Seen b y this provider 08/24 and diagnosed with gastritis She worsened and started vomiting and to ED She had nl labs and told likely gastritis but should have ruq u/s in further eval She is on omeprazole and was given zofran which has helped resolve the vomiting She continues with pain-epigastric towards LUQ Of note she had u/s last year for elevated LFTs and had findings c/w contracted gallbladder packed with stones She is tolerating a regular diet No weight loss Follow Up of KARLA velez E.D. on 08/27/15 abdominal pain (comments) 34 yo female here with LUQ pain for past 5 days She had similar pain several months ago but did not seek eval at that time Pain is dull constant ache Not clearly associated with hunger or certain foods She has lots of nausea and at times at night with reflux/heartburn No meds tried Occasional coffee drinker Non-smoker nauseas abdominal pain L ear pain cough cough (comments) 34 yo female he re with worsening cough and left ear pain She has been sick for past 3-4 days and notes last night it worsened with increased pain in left ear her cough is productive No h/o asthma Non-smoker No fevers but has felt achey and tired update vaccines Patient starting a new job and need update vaccines.Missing the 2d dose varicella, and flu. pap smear 34 yo (a ges 7 and 12, SVDs) LMP 04/04/15 s/p BTL here for Pap on referral from PCP, thinks it has been a long time since last Pap ?4 yrs ago per pt report--archived Paps here at [facility] include nl Paps 2006 and 2008 none seen since. Self reports hx of abnl Pap 2004 c/colpo ?at [facility] then all nl Paps since per pt. No vaginal sxs. With same partner x 8 yr=dad of her younger child. No STDs. No chr dxs no daily meds. Prev followed by Dr Beal for ?chr pelvic pain--later discovered to be of GI source by PCP BSU that is currently controlled c/diet changes. Pt has no c/o vag d/c itching odor. Non smoker. 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 sore throat Onset: 3 Days. T he severity of the problem is moderate. Pain scale: 8/10. The problem has worsened. The symptoms are persistent. Symptoms are associated with sick family member. Symptoms are not associated with recent cold. Symptoms are not aggravated by allergens or cold air. Aggravated by additional comments: swallowing. Symptoms are not relieved by OTC analgesics. Associated symptoms include chills/rigors, otalgia and pharyngitis. Pertinent negatives include cough, dyspnea, facial pain, nasal congestion, postnasal drainage, rash, rhinitis or sinus pressure. Sinus Sx (comments) 34 yo female here with sinus pain It is located left maxillary area and radiates to left upper jaw Area is a little swollen No fever She has had some nasal congestion for past week and now with worsening sinus pain over weekend Sinus Sx obesity The severity of the problem is moderate. The patient is maintaining weight. Risk factors include annual weight gain of > 2 lbs (1kg) / year, ethnicity, family history of obesity, high fat diet and sedentary lifestyle. The patient denies relieving factors. Pertinent negatives include constipation. chronic conditions 1) Diarrhea, unspecified (onset 09/22/2014; Fair Control. seen by colorectal surgery who recommended GI workup. i've changed my whole diet and eating style . -no longer frying foods-changed to brown rice-higher fiber diet-diarrhea no longer daily; now 1-2x/wk-no weight loss) 2) Liver disease, unspecified (onset 09/22/2014; Stable. watching diet) routine exam The 34 year old female presents for evaluation of routine exam The patient presents for annual comprehensive eye examination. No itching, burning, tearing in the eyes. Patient has no history of ocular injury or surgery. There is no family history of eye disease or blindness. Patient states good adaption and vision with glasses. Pre Counseling/Testing Pt. come in for Counseling for HIV,HCV,and STI. Bar Code# [id number]. After risk risk assessment patient agreed to be tested for HIV; HCV and STI. [facility]. result Follow Up of result diarrhea Onset: 1 year ag o. The patient describes it as brown. It occurs daily. The problem is worse. Context: following every meal. Symptom is aggravated by meat (worst=hamburger), rice and fast food. Associated symptoms include bloating, cramping (abdominal) and fluctuations in weight. Pertinent negatives include abdominal pain, anorexia and vomiting. Additional information: no family history of colon cancer, no family history of Crohns/Colitis, seen 1mo ago for N/V, at which point chronic diarrhea was first mentioned to me. Notes recent jelly-like yellow stools x 2d, 4d ago. tolerates beans, salad and pasta. mother s/p 4 GI surgeries . urinary symptoms Onset: 5 days a go. There is no radiation. Location is suprapubic. The patient describes it as cramping and odorous. The problem is improving. Context: UTI. Symptom is aggravated by urination. Relieving factors include antibiotics. Additional information: no history of UTIs, sexually active, LMP: 07/28/2014 and finished abx this am. feeling better. denies fevers.also c/o RLW pain x 3mo. started acutely upon standing from bent position. seen in ED few days after onset ~05/2014 for increased pain/ nausea. Dysuria Onset: gradual. Date of initial symptoms: 08/16/2014. Severity level is moderate-severe. Location is right flank and suprapubic. The patient describes it as cloudy and odorous. The problem is with no change. Denies relieving factors. Additional information: 33 yo pt [employer] employee c/1 d hx dysuria and some rt sided mid to LBP. No fever, no chills no sweats, no recent changes in vag d/c and has been seeing administrative liaison Papa for post coital pelvic pain.. sore throat Onset: 3 Days. T he severity of the problem is mild. Symptoms are associated with exposure to strep, recent cold and sick family member. Symptoms are not associated with dental infection, history of allergies, history of asthma and smoker. The patient denies relieving factors. Associated symptoms include fatigue and pharyngitis. Pertinent negatives include dyspnea, facial pain, fever or wheezing. Functional Status Date Functional Assessmen t No Information Instructions Date Instruction Additional Infor mation Dietary and exercise management, guidance, and counseling Related to Overweight Dietary and exercise management, guidance, and counseling Related to Body mass index (BMI) 29.0-29.9, adult Dietary and exercise management, guidance, and counseling Related to Overweight Dietary and exercise management, guidance, and counseling Related to Body mass index (BMI) 29.0-29.9, adult Dietary management e ducation, guidance, and counseling Related to Body mass index (BMI) 29.0-29.9, adult Giving encouragement to exercise Related to Body mass index (BMI) 31.0-31.9, adult Impression/Plan - Di stance glasses ordered RTC 1 year Related to Astigmatism, unspecified Seasonal allergic co njunctivitis with mucus strands - [place] bid Related to Seasonal allergic conjunctivitis Hyperopic Astigmatis m - Glasses ordered. General use for distance and nearRTC 1 year Related to Hyperopic Astigmatism wound healing and care reviewed Related to Abscess of bartholin's gland wound care instructions given Re lated to Abscess of bartholin's gland wound care instructions given Re lated to Abscess of bartholin's gland Dietary counseling Related to Ob esity unspecified, BMI 30- Physical activity counseling Rel ated to Obesity unspecified, BMI 30 Decrease caloric intake Related to Obesity unspecified, BMI 30-39 Astigmatism, unspeci fied Ocular health is normal - Glasses ordered. General use for distance and nearRTC 1 year Related to Astigmatism, unspecified Dietary counseling Related to Ob esity unspecified, BMI 30-39 Physical activity counseling Rel ated to Obesity unspecified, BMI 30-39 Decrease caloric intake Related to Obesity unspecified, BMI 30-39 Assessments Type Assessment Date No Information Patient Care Teams Name Effective Dates (start - stop) Status Members No Information
--- OUTSIDE RECORDS SUMMARY | 2024-06-02 19:08 | XMS_ITS | Encounter Summary ---
Author Organization [facility] Address [address] [place] [address] Care Team Providers Care Continuous Still Operator Name Role Phone William Barton MD Primary Care Provider [phone] Encounter Details Date Type Department Care Team (Late st Contact Info) Description 06/28/2022 Community Orders [facility] EpicCare Link [address] [place] [address] Mary Anne Colón MD [address] [place] [address] Social History Tobacco Use Types Packs/Day Years Used Date Smoking Tobacco: Never Smokeless Tobacco: Never Alcohol Use Standard Drinks/Week Comments No 0 (1 standard drink = 0.6 oz pur e alcohol) Comments No Sex and Gender Information Value Date Recorded Sex Assigned at Female 07/28/2022 11:41 AM EDT Legal Sex Female 6:47 AM EDT Gender Identity Female 07/28/2022 11:41 AM EDT Sexual Orientation Straight 07/28/2022 11 :41 AM EDT documented as of this encounter Plan of Treatment Upcoming Encounters Date Type Department Care Team (Late st Contact Info) Description 06/09/2024 9:30 AM EDT Office Visit [facility] - Gastroenterology [address] [place] [phone] Lorenzo Brown MD [address] [place] [address] 07/16/2024 8:00 AM EDT Office Visit [facility] Rhe[facility]ology [facility] [address] [place] [address] Office Machinery Or Equipment Installer: Deedee Mclaughlin PA [address] [place] [address] 04/29/2025 10:15 AM EDT Clinical Support [address] [phone] 04/29/2025 10:45 AM EDT Follow-Up [address] [phone] Ebonie Erazo MD [address] [place] [address] documented as of this encounter Visit Diagnoses Not on filedocumented in this encounter Care Teams Continuous Still Operator Relationship Specialty Start Date End Date William Barton MD [address] [place] [address] PCP - General Family Medicine 01/14/18 documented as of this encounter
--- OUTSIDE RECORDS SUMMARY | 2024-06-02 19:08 | XMS_ITS | Encounter Summary ---
Author Organization [facility] Address [address] [place] [address] Care Team Providers Care Director Of Nurses Registry Name Role Phone William Barton MD Primary Care Provider [phone] Reason for Visit * Reason Onset Date Comments PAC Appt Request - Established 05/26/2024 Encounter Details Date Type Department Care Team (Late st Contact Info) Description 05/26/2024 Telephone [facility] Rhe[facility]ology Clinic [address] [place], [place] [phone] Operation Manager: Tere Saavedra Telephone Intake, Staff PAC Appt Request - Established Social History Tobacco Use Types Packs/Day Years Used Date Smoking Tobacco: Never Passive Smoke Exposure: Past Smokeless Tobacco: Never Alcohol Use Standard Drinks/Week Comments No 0 (1 standard drink = 0.6 oz pur e alcohol) [facility] Utilities Answer Date Recorded In the past 12 months has th e electric, gas, oil, or water company threatened to shut off services in your home? Patient declined 11/14/2023 Hunger Vital Sign Answer Date Recorded Within the past 12 months, y ou worried that your food would run out before you got the money to buy more. Sometimes true Within the past 12 months, t he food you bought just didn't last and you didn't have money to get more. Often true 04/2023 Transportation Answer Date Recorded In the past 12 months, has l ack of reliable transportation kept you from medical appointments, meetings, work or from getting things needed for daily living? No 11/14/2023 Housing Answer Date Recorded Housing Risk Low 2 11/14/2023 Housing Risk Medium Not on file 11/14/2023 Housing Risk High Not on file 11/14/2023 What is your living situation today? [facility] 11/14/2023 Comments No Sex and Gender Information Value Date Recorded Sex Assigned at Female 07/28/2022 11:41 AM EDT Legal Sex Female 6:47 AM EDT Gender Identity Female 07/28/2022 11:41 AM EDT Sexual Orientation Straight 07/28/2022 11 :41 AM EDT Occupation Industry Job Start Date Job End Date works in [employer] Not on file Not on file Not on file documented as of this encounter Miscellaneous Notes * Telephone Encounter - Maira Boggs - 05/26/2024 10:40 AM EDT Pt called into PAC to r/s her appt that was canceled for 09/14. Pt is seen by Dr. Liu for Sjogren's syndrome. Per the notes on the pts last visit, pt is to r/s with [facility]. Per the DT, unable to load APPschedule to book pt. Please contact the pt at [phone]. Pt prefers appts to be booked after 9 am. documented in this encounter Plan of Treatment Upcoming Encounters Date Type Department Care Team (Late st Contact Info) Description 06/09/2024 9:30 AM EDT Office Visit [facility] - Gastroenterology [address] [place] [phone] Lorenzo Brown MD [address] [place] [address] 07/16/2024 8:00 AM EDT Office Visit [facility] [address] [place] [address] Operation Manager: Deedee Mclaughlin PA [address] [place] [address] 04/29/2025 10:15 AM EDT Clinical Support [facility] [address] [place] [phone] 04/29/2025 10:45 AM EDT Follow-Up [facility] [address] [place] [phone] Ebonie Erazo MD [address] [place] [phone] documented as of this encounter Visit Diagnoses Not on filedocumented in this encounter Care Teams Director Of Nurses Registry Relationship Specialty Start Date End Date William Barton MD [address] [place] [phone] PCP - General Family Medicine 01/14/18 documented as of this encounter
--- OUTSIDE RECORDS SUMMARY | 2024-06-02 19:08 | XMS_ITS | Encounter Summary ---
Author Organization [facility] Address [address] [place] [address] Care Team Providers Care Railroad Watchman Name Role Phone William Barton MD Primary Care Provider [phone] Encounter Details Date Type Department Care Team ([facility] st Contact Info) Description 01/17/2023 Community Orders [facility] EpicCare Link [address] [place] [address] William Barton MD [address] [place] [address] Sjogren's syndrome, with unspecified organ involvement (Primary Dx) Social History Tobacco Use Types Packs/Day Years Used Date Smoking Tobacco: Never Passive Smoke Exposure: Past Smokeless Tobacco: Never Alcohol Use Standard Drinks/Week Comments No 0 (1 standard drink = 0.6 oz pur e alcohol) Hunger Vital Sign Answer Date Recorded Within the past 12 months, y ou worried that your food would run out before you got the money to buy more. Often true 01/20/20 23 Within the past 12 months, t he food you bought just didn't last and you didn't have money to get more. Often true 01/19/2023 Transportation Answer Date Recorded Please adelita the areas for wh ich the patient would like information or assistance: Food 01/19/2023 Lack of Transportation (Medical) Not on file 01/19/2023 Housing Stability Answer Date Recorded Please adelita the areas for wh ich the patient would like information or assistance: Food 01/19/2023 Unable to Pay for Housing in the Last Year Not o n file 01/19/2023 Last EPDS Total Score Not on file 01/19/2023 Unstable Housing in the Last Year Not on file 01/19/2023 Comments No Sex and Gender Information Value Date Recorded Sex Assigned at Female 07/28/2022 11:41 AM EDT Legal Sex Female 6:47 AM EDT Gender Identity Female 07/28/2022 11:41 AM EDT Sexual Orientation Straight 07/28/2022 11 :41 AM EDT Occupation Industry Job Start Date Job End Date works in [employer] Not on file Not on file Not on file documented as of this encounter Plan of Treatment Upcoming Encounters Date Type Department Care Team (Late st Contact Info) Description 06/09/2024 9:30 AM EDT Office Visit [facility] - Gastroenterology [address] [place] [phone] Lorenzo Brown MD [address] [place] [address] 07/16/2024 8:00 AM EDT Office Visit [facility] Rheumatology Clinic [address] [place] [address] Digester Cook: Deedee Mclaughlin PA [address] [place] [address] 04/29/2025 10:15 AM EDT Clinical Support [address] [phone] 04/29/2025 10:45 AM EDT Follow-Up [address] [phone] Ebonie Erazo MD [address] [place] [address] documented as of this encounter Visit Diagnoses Diagnosis Sjogren's syndrome, with unspecified organ involvement (HCC)- Primary documented in this encounter Care Teams Railroad Watchman Relationship Specialty Start Date End Date William Barton MD [address] [place] [address] PCP - General Family Medicine 01/14/18 documented as of this encounter
--- OUTSIDE RECORDS SUMMARY | 2024-06-02 19:08 | XMS_ITS | Patient Health Record ---
Author Organization [facility] Address [address] [place] [address] Road [address] [place], [place] [phone] Care Team Providers Care Video Tape Editor Name Role Phone William Barton Primary Care Provider Luis Miguel Mccarthy Unavailable [phone] David Tay Unavailable Unavailable Reason For Referral No Information Medications Medication SIG (Take, Route, Fr equency, Duration) Notes Start Date End Date Status CPAP* DX: PETE G47.33 APAP 4-20 cm water pressure with mask of her choice during sleep for lifetime 07/11/2016 Active Problems Problem Type SNOMED Code ICD Code Onset Dates Problem Status W/U Status Risk Notes Problem 22469302 Restless legs syndrome (G25.81) Active confirmed Problem 72577149 Hypersomnolence (G47.10) Active confirmed Problem 028083966 Periodic limb movement disorder (PLMD) (G47.61) Active confirmed Problem [id number] PETE (obstructive sleep apnea) (G47.33) Active confirmed Plan Of Treatment No Information Insurance Providers Payer Name Payer Address Payer Phone Subscriber Number Group Number Insured Name Patient Relationship to Insured Coverage Start Date Coverage End Date [facility] [address] [place] [phone] [id number] Shellie Amaro Self - patient is the insured Medical (General) History Surgical History Surgery Date(Month/Year) tubal ligation cholecystectomy
--- OUTSIDE RECORDS SUMMARY | 2024-06-02 19:08 | XMS_ITS | Encounter Summary ---
Author Organization [facility] Address [address] [place] [address] Care Team Providers Care Organic Extractions Technician Name Role Phone William Barton MD Primary Care Provider [phone] Encounter Details Date Type Department Care Team (Late st Contact Info) Description 10/28/2023 Community Orders [facility] EpicCare Link [address] [place] [address] William Barton MD [address] [place] [address] Snoring (Primary Dx) Social History Tobacco Use Types [...] Start Date Job End Date works in [employer] Not on file Not on file Not on file documented as of this encounter Plan of Treatment Upcoming Encounters Date Type Department Care Team (Late st Contact Info) Description 06/09/2024 9:30 AM EDT Office Visit [facility] - Gastroenterology [address] [place] [phone] Lorenzo Brown MD [address] [place] [address] 07/16/2024 8:00 AM EDT Office Visit [facility] Rheumatology Clinic [address] [place] [address] Community Nutrition Educator: Deedee Mclaughlin PA [address] [place] [address] 04/29/2025 10:15 AM EDT Clinical Support [address] [phone] 04/29/2025 10:45 AM EDT Follow-Up [address] [phone] Ebonie Erazo MD [address] [place] [address] documented as of this encounter Visit Diagnoses Diagnosis Snoring- Primary Other dyspnea and respiratory abnormality documented in this encounter Care Teams Organic Extractions Technician Relationship Specialty Start Date End Date William Barton MD [address] [place] [phone] PCP - General Family Medicine 01/14/18 documented as of this encounter
--- OUTSIDE RECORDS SUMMARY | 2024-06-02 19:08 | XMS_ITS | Encounter Summary ---
Author Organization [facility] Address [address] [place] [address] Care Team Providers Care Chicken And Fish Cleaner Name Role Phone William Barton MD Primary Care Provider [phone] Encounter Details Date Type Department Care Team (Late st Contact Info) Description 06/19/2023 Community Orders [facility] EpicCare Link [address] [place] [address] Mary Anne Colón MD [address] [place] [address] Left upper quadrant pain (Primary Dx) Social History Tobacco Use Types [...] Start Date Job End Date works in [employer] Not on file Not on file Not on file documented as of this encounter Plan of Treatment Upcoming Encounters Date Type Department Care Team (Late st Contact Info) Description 06/09/2024 9:30 AM EDT Office Visit [facility] - Gastroenterology [address] [place] [phone] Lorenzo Brown MD [address] [place] [phone] 07/16/2024 8:00 AM EDT Office Visit [facility] Rheumatology Clinic [address] [place] [address] Beef Breaker: Deedee Mclaughlin PA [address] [place] [address] 04/29/2025 10:15 AM EDT Clinical Support [address] [phone] 04/29/2025 10:45 AM EDT Follow-Up [address] [phone] Ebonie Erazo MD [address] [place] [address] documented as of this encounter Visit Diagnoses Diagnosis Left upper quadrant pain- Primary Abdominal pain, left upper quadrant documented in this encounter Care Teams Chicken And Fish Cleaner Relationship Specialty Start Date End Date William Barton MD [address] [place] [phone] PCP - General Family Medicine 01/14/18 documented as of this encounter
--- OUTSIDE RECORDS SUMMARY | 2024-06-02 19:08 | XMS_ITS | Encounter Summary ---
Author Organization [facility] Address [address] [place] [address] Care Team Providers Care Ripsaw Matcher Name Role Phone William Barton MD Primary Care Provider Encounter Details Date Type Department Care Team (Late st Contact Info) Description 06/28/2022 Community Orders [facility] EpicCare Link [address] [place] [address] William Barton MD [address] [place] [address] Social History Tobacco Use Types Packs/Day Years [...] Description 06/09/2024 9:30 AM EDT Office Visit [facility] - Gastroenterology [address] [place] [phone] Lorenzo Brown MD [address] [place] [phone] 07/16/2024 8:00 AM EDT Office Visit [facility] [address] [place] [address] Testboard Operator: Deedee Mclaughlin PA [address] [place] [address] 04/29/2025 10:15 AM EDT Clinical Support [address] [phone] 04/29/2025 10:45 AM EDT Follow-Up [address] [phone] Ebonie Erazo MD [address] [place] [phone] documented as of this encounter Visit Diagnoses Not on filedocumented in this encounter Care Teams Ripsaw Matcher Relationship Specialty Start Date End Date William Barton MD [address] [place] [address] PCP - General Family Medicine 01/14/18 documented as of this encounter
--- OUTSIDE RECORDS SUMMARY | 2024-06-02 19:08 | XMS_ITS | Clinical Summary ---
Author Organization [facility] Address [address] [place] [address] Care Team Providers Care Senior Embedded Software Engineer Name Role Phone William Barton MD Primary Care Provider [phone] Allergies Active Allergy Reactions Criticality Noted Date Comments Penicillins Hives Medium 01/14/2018 Medications metFORMIN (GLUCOPHAGE) 500 mg tablet TK 1 T PO QD WITH THE ROBERTO MEAL 05/20/19 20 Active ondansetron (ZOFRAN ODT) 4 mg disintegrating tablet Dissolve 1 tablet (4 mg total) in the mouth every 8 hours as needed for nausea or vomiting. 15 tablet 07/03/19 23 Active fish oil 340-1,000 mg capsule Take 1,000 mg by mouth once a day. Active Vitamin D3 25 mcg (1,000 unit) capsule Take 1 capsule by mouth once a day. Active traZODone (DESYREL) 100 mg tablet SMARTSI-2 Tablet(s) By Mouth Every Night PRN 11/06/19 24 Active Januvia 50 mg tablet SMARTSI Tablet(s) By Mouth Daily 01/20/20 24 Active hydroxychloroquin e (PLAQUENIL) 200 mg tablet Take 2 pills by mouth daily Mondays- ays Take 1 pill by mouth daily Saturdays and Sundays 50 tablet 5 05/07/19 25 Active hydroxychloroquin e (PLAQUENIL) 200 mg tablet Take 2 pills by mouth daily Mondays- ays Take 1 pill by mouth daily Saturdays and Sundays 50 tablet 5 06/24/19 24 025 Discontinued hydroxychloroquin e (PLAQUENIL) 200 mg tablet Take 2 pills by mouth daily Mondays- ays Take 1 pill by mouth daily Saturdays and Sundays 50 tablet 5 11/06/19 24 025 Discontinued Active Problems Problem Noted Date Diagnosed Date Sjogren's syndrome with keratoconjunctivitis sic ca 12/26/2022 Overview (05/06/2024): Arthralgias, swelling RUE, one hour morning stiffness, knee, hip, thoracic pain Onset Summer 2022 LATA positive Anti SSA > 8 negative SSB. Negative anti DS DNA, Bravo, MANAGER RISK MANAGEMENT, Sm/MANAGER RISK MANAGEMENT, chromatin, SCL 70, Jo1, nl C3, C4 CPK 26 Some dry mouth, no cavites Variable eye dryness Late August 2022 hydroxychloroquine 200 mg weekends, 400 mg weekends ? Some improvement in pain High risk medication use 12/26/2022 Overview (12/26/2022): Hydroxychloroquine August [address] Chencho Bautista PETE (obstructive sleep apnea) 2019 Cholelithiasis 02/20/2016 Diarrhea 10/20/2014 Encounters Date Type Department Care Team Description 05/26/2024 Telephone [facility] Rheumatology Clinic [address] [place] [phone] Hospice Rn: Tere Saavedra Telephone Intake, Staff PAC Appt Request - Established 05/06/2024 10:18 AM EDT - 05/06/2024 11:59 PM EDT Hospital Encounter [facility] XRay [address] [place] [address] William Barton MD Chronic pain in right foot Discharge Disposition: Home or Self Care () 05/06/2024 10:00 AM EDT Follow-Up [facility] Rheumatology Clinic [address] [place] [address] Hospice Rn: Swapna Grider MD Sjogren's syndrome with keratoconjunctivitis sicca (Primary Dx); High risk medication use; Fibromyalgia 04/23/2024 3:30 PM EDT Follow-Up [facility] at [address] [place] [address] Ebonie Erazo MD Long-term use of Plaquenil (Primary Dx); Sjogren's syndrome with keratoconjunctivitis sicca; Refractive error 04/23/2024 2:45 PM EDT Clinical Support [facility] at [facility] [address] [place] [address] 04/02/2024 Telephone [place] [address] Telephone Intake, Staff from Last 3 Months Family History Medical History Relation Name Comments Lupus Father's Sister Lung cancer Mother Other Mother Family history of C. difficile colitis Sleep apnea Mother Fibroids Sister Thyroid disease Neg Hx Relation Name Status Comments Father Alive Father's Sister Mother Sister Social History Tobacco Use Types Packs/Day Years Used Date Smoking Tobacco: Never Passive Smoke Exposure: Past Smokeless Tobacco: Never Tobacco Cessation:Counseling Given: Not Answered Alcohol Use Standard Drinks/Week Comments No 0 (1 standard drink = 0.6 oz pur e alcohol) [facility] Utilities Answer Date Recorded In the past 12 months has e electric, gas, oil, or water company [...] Date Job End Date works in [employer] Not on file Not on file Not on file Last Filed Vital Signs Vital Sign Reading Time Taken Comments Blood Pressure 132/87 05/06/2024 9:39 AM EDT Pulse 74 05/06/2024 9:39 AM EDT Temperature 36.9 ??C (98.4 ??F) 05/06/2024 9:39 AM ED T Respiratory Rate 18 07/02/2022 4:46 PM EDT Oxygen Saturation 98% 05/06/2024 9:39 AM EDT Inhaled Oxygen Concentration - - Weight 77.6 kg (171 lb) 05/06/2024 9:39 AM EDT Height 157.5 cm (5' 2 ) 05/06/2024 9:39 AM EDT Body Mass Index 31.28 05/06/2024 9:39 AM EDT Plan of Treatment Upcoming Encounters Date Type Department Care Team (Late st Contact Info) Description 06/09/2024 9:30 AM EDT Office Visit [facility] - Gastroenterology [address] [place] [phone] Lorenzo Brown MD [address] [place] [phone] 07/16/2024 8:00 AM EDT Office Visit [facility] Rheumatology Clinic [address] [place] [address] Hospice Rn: Deedee Mclaughlin PA [address] [place] [address] 04/29/2025 10:15 AM EDT Clinical Support [address] [phone] 04/29/2025 10:45 AM EDT Follow-Up [address] [place] [address] Ebonie Erazo MD [address] [place] [phone] Health Maintenance Due Date Last Done Comments HIV Screening 1980 Hepatitis C Screening 1980 Pap Smear 12/28/2013 12/28/2010, 12/12, 12/16/2006, Additional history exists Cervical Cancer Screening 12/29/2015 HPV and Pap Smear 12/29/2015 12/28/2010, , 12/16/2006, Additional history exists Mammogram 2021 COVID-19 Vaccine ( season) 2023 02/18/2021, 04/15/2020, 03/11/2020 Alcohol/Substance Use Screening 02/12/2024 Depression Screening and Follow-Up 02/12/2024 11/14/2023 Social Drivers of Health Annual Screening 02/12/2024 DTaP,Tdap,and Td Vaccines (4 - Td or Tdap) 11/19/2033 11/20/2023, 05/10/2009, 12/16/1998 RSV Vaccine (60+ years old and patients) (1 - 1-dose 75+ series) 2056 Hepatitis B Vaccines Completed 05/27/2009, 10/06/1996, 02/20/1996, Additional history exists Varicella Vaccines Completed 04/18/2015, 05/27/2009 Influenza Vaccine Completed 11/20/2023, , 11/09/2013, Additional history exists Pneumococcal Vaccine: Pediatric (0-5 Years) and At-Risk Patients (6-50 Years) Aged Out No longer eligible based on patient's age to complete this topic Procedures * Due to [place] state law, this organization might not be sharing negative HIV tests. Procedure Name Priority Date/Time Associated Diagnosis Comments XR FOOT 3+ VW RIGHT Routine 05/06/2024 1 0:36 AM EDT Chronic pain in right foot COLOR FUNDUS PHOTOGRAPHY - OU - BOTH EYES Routine 04/23/2024 3:42 PM EDT Long-term use of Plaquenil OCT, MACULA - OU - BOTH EYES Routine 04/23/2024 3:42 PM EDT Long-term use of Plaquenil GLOVER VISUAL FIELD - OU - BOTH EYES Routine 04/23/2024 2:25 PM EDT Long-term use of Plaquenil PAP W/HPV, CONVERSION Routine 12/28/2010 1:37 PM EST from Last 3 Months or Most Recently Relevant to Health Maintenance Results * Due to [place] state law, this organization might not be sharing negative HIV tests. * XR Foot 3+ vw Right (05/06/2024 10:36 AM EDT) Anatomical Region Laterality Modality Lower Extremities, Foot Right Computed Radiography 05/06/2024 3:41 PM EDT Impressions 05/06/2024 3:44 PM EDT No acute fracture or dislocation. 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 If this radiology report contains a blank impression section, it is an incomplete radiology report. ??Please contact the interpreting radiologist or applicable radiology division as soon as possible to obtain the completed interpretation. ? Workstation ID: [id number] Narrative 05/06/2024 3:44 PM EDT COMPARISON: ??11/12/2016. ?? FINDINGS AND Resulting Agency Comment [id number] Procedure Note Enrique Coffey DO - 05/06/2024 COMPARISON: 11/12/2016. FINDINGS AND IMPRESSION: No acute fracture or dislocation. Congenital nonsegmented fifth DIP joint.Mild multifocal degenerative arthropathy of the first MTP and secondthrough fourth DIP joint. If this radiology report contains a blank impression section, it is anincomplete radiology report. Please contact the interpreting radiologistor applicable radiology division as soon as possible to obtain thecompleted interpretation. Workstation ID: [id number] us William Barton MD IMG XR PROCEDURES Final Result * Color Fundus Photography - OU - Both Eyes (04/23/2024 3:42 PM EDT) Narrative OPHTHALMOLOGY IMAGING - 04/23/2024 3:42 PM EDT Normal fundus OU Ebonie Erazo MD OPHTH PHOTOGRAPHY Final R esult Performing Organization Address [facility] de Phone Number OPHTHALMOLOGY IMAGING * OCT, Retina - OU - Both Eyes (04/23/2024 3:42 PM EDT) Narrative OPHTHALMOLOGY IMAGING - 04/23/2024 3:42 PM EDT Full, normal OU, no CME OU Ebonie Erazo MD OPHTH TOMOGRAPHY Final Re sult Performing Organization Address [facility] de Phone Number OPHTHALMOLOGY IMAGING * Glover Visual Field - OU - Both Eyes (04/23/2024 2:25 PM EDT) Narrative OPHTHALMOLOGY IMAGING - 04/23/2024 3:43 PM EDT Normal HVF OU Ebonie Erazo MD OPHTH VISUAL FIELD Final Result Performing Organization Address [facility] de Phone Number OPHTHALMOLOGY IMAGING * Pap w/HPV (12/28/2010 1:37 PM EST) Path Procedure HPV (901399) 1 ?? TPGS (159534) 1 ?? Edited by: [id number] ?? [id number] [facility] ?? [id number] [facility] ANATOMIC PATHOLOGY - [facility] THREE Specimen Labeled As: 1 CERVICAL/ENDOCERVI KRUNAL CYTO MATERIAL - Edited by: [id number] NASH [facility] ANATOMIC PATHOLOGY - [facility] THREE Additional Test Information Specimens were tested for high risk HPV using the FDA approved Digene Hybrid ?? Capture II kit, in the Diagnostic Molecular Oncology Lab at [facility]. ??This test can detect HPV high risk types 16, 18, 31, 33, 35, 39, ?? 45, 51, 52, 56, 58, 59 and 68. ? High-risk subtypes of HPV are found in ~96% of patients with high grade ?? squamous intraepithelial lesions and cervical squamous cell carcinoma. ?? Additional studies may be indicated in spite of a negative HPV test, e.g. ?? in patients with a friable cervix or multiple previous abnormal Pap tests. ??HPV ?? testing is not recommended for managing patients with atypical glandular cells. ?? Not all high-risk HPV infections are associated with a histologic or cytologic ?? abnormality. ??We endorse the recommendations of the [place] Society for ?? Colposcopy and Cervical Pathology for management of Pap test results, available ?? at www.asccp.org. ? ASCCP guidelines also recommend HPV 16/18 genotyping in patients over the age ?? of 30 who have had positive high risk HPV testing, but have a negative ?? morphologic Pap test (http://www.asccp. org/consensus.shtm l). ? The performance characteristics of this test have been validated by the ?? Laboratory of Diagnostic Molecular Oncology. ??They have not been cleared or ?? approved by the U.S. ??Food and Drug Administration (FDA). The FDA has ?? determined that such clearance or approval is not necessary. ??The laboratory is ?? certified (CLIA-88) to perform high complexity clinical laboratory testing. ?? Edited by: [id number] [facility] - [facility] Diagnosis Thinprep Pap Test ? Adequacy: Satisfactory for evaluation ? Interpretation: Negative for Intraepithelial Lesion or Malignancy ? Inflammation ? This Pap test could not be examined by the ThinPrep Imaging System, [employer], [place], [place], and required a full manual screening. ?- High risk HPV DNA subtypes: NEGATIVE ?? Edited by: [id number] ?? [id number] [facility] ANATOMIC PATHOLOGY - [facility] THREE Gynecologic Clinical Data Specimen source:, THINPREP (CERVICAL AND ENDOCERVICAL) [facility] ANATOMIC PATHOLOGY - [facility] Gynecologic Clinical Data First date of LMP:, 11/15/10 [facility]AT[facility] - [facility] Completed Report [id number] CYTOPATH C/V TP SCR 1 [facility]ATOM[facility]OLOG[facility] - [facility] Marker 1 VIDAL [facility] ANATOMIC PATHOLOGY - BIOTECH THREE Marker 2 HERBERT FAYE [facility] ANATOMIC PATHOLOGY - [facility] THREE Marker 3 REVAWhit Desir [facility] ANATOMIC PATHOLOGY - BIOTECH THREE Marker 4 WOJCIECH,MD NEGATIVE [facility] ANATOMIC PATHOLOGY - BIOTECH THREE Marker 5 NILM,NILM [facility] ANATOMIC PATHOLOGY - [facility] THREE Marker 6 RIM,RECEIVED IN MOLECULAR [facility]ATOMIC PATHOLOGY - [facility] Cc Results To MEAGHAN BRYAN [id number] [facility]ATOM[facility]OLOG[facility] - [facility] Signature REPORT SIGNED: DAYAMI PAYNE 01/08/11 [facility] - [facility] Sign Out Audit DAYAMI PAYNE [id number] [facility]AL [facility] [id number] [facility] ANATOMIC PATHOLOGY - [facility] THREE Cytology / Unknown 1 1:37 PM EST 01/01/2011 1:37 PM EST us Akira An DO LAB HISTORICAL RESULTS Final Res ult [facility]ATOM[facility]OLOG[facility] - [facility] [place] [address], from Last 3 Months or Most Recently Relevant to Health Maintenance Insurance [facility] Member Subscriber Plan / Payer (Ef fective 2023-Present) Name:Shellie Amaro Relation to Subscriber:Self Name:Shellie Amaro Payer ID:[id number] Group ID:Not on file Type:Not on file Address: [place] [address] [address] Care Teams Senior Embedded Software Engineer Relationship Specialty Start Date End Date William Barton MD [address] [place] [address] PCP - General Family Medicine 01/14/18
--- OUTSIDE RECORDS SUMMARY | 2024-06-02 19:08 | XMS_ITS ---
Author Organization [facility] Address [address] [place], [place] [id number] Care Team Providers Care Dress Finisher Name Role Phone William Barton Primary Care Provider Luis Miguel Mccarthy Unavailable [phone] David Tay Unavailable Unavailable REASON FOR VISIT MAINFRAME ARCHITECT Sleep Encounters Encounter Location Date Provider Diagnosis [facility] [address] [facility] [address] [place], [place] [id number] 07/09/2023 Luis Miguel Nielsen Plan Of Treatment No Information Progress Notes * Howard AMAROB: 2 (43 yo F)Acc No.[id number]:07/09/2023 N/Patient Abdiel Patient:?Shellie AMARO Provider:?Luis Miguel Nielsen MD :1980???Age:42 Y???Sex:Female D ate:07/09/2023 Address:[address] [place] [address], [place] Pcp:William Barton Subjective: * Chief Complaints: * ???1. MAINFRAME ARCHITECT Sleep. * Medical History:? Objective: * Vitals:? Assessment: Plan: * Treatment: * Images: * Electronic signature of Ishan Nielsen MD on 06/02/2024 at 07:07 PM EDT Sign off status: Pending * Provider:?Luis Miguel Nielsen MD Date:? Generated for Morena main/Ashley/Soila on:?06/02/2024 07:07 PM EDT
--- OUTSIDE RECORDS SUMMARY | 2024-06-02 19:08 | XMS_ITS | Referral Summary ---
Author Organization [facility] Address [address] [place] [address] Care Team Providers Care Stage Electrician Helper Name Role Phone William Barton MD Primary Care Provider [phone] Encounters Date Type Department Care Team Description 05/26/2024 Telephone [facility]ology [facility] [address] [place] [address] Program Advisor: Tere Saavedra Telephone Intake, Staff PAC Appt Request - Established 05/06/2024 10:18 AM EDT - 05/06/2024 11:59 PM EDT Hospital Encounter [facility] XRay [address] [place] [address] William Barton MD Chronic pain in right foot Discharge Disposition: Home or Self Care (01) 05/06/2024 10:00 AM EDT Follow-Up [facility]umatology [facility] [address] [place] [address] Program Advisor: Swapna Grider MD Sjogren's syndrome with keratoconjunctivitis sicca (Primary Dx); High risk medication use; Fibromyalgia 04/23/2024 3:30 PM EDT Follow-Up [facility] at [address] [phone] Ebonie Erazo MD Long-term use of Plaquenil (Primary Dx); Sjogren's syndrome with keratoconjunctivitis sicca; Refractive error 04/23/2024 2:45 PM EDT Clinical Support [facility] OPH [address] [place] [phone] 04/02/[address] [address] Telephone Intake, Staff from Last 3 Months Allergies Active Allergy Reactions Criticality Noted Date Comments Penicillins Hives Medium 01/14/2018 Medications metFORMIN (GLUCOPHAGE) 500 mg tablet TK 1 T PO QD WITH THE ROBERTO MEAL 05/20/19 Active ondansetron (ZOFRAN ODT) 4 mg disintegrating [...] negative SSB. Negative anti DS DNA, Bravo, [employer], Sm/[employer], chromatin, SCL 70, Jo1, nl C3, C4 CPK 26 Some dry mouth, no cavites Variable eye dryness Late August 2022 hydroxychloroquine 200 mg weekends, 400 mg weekends ? Some improvement in pain High risk medication use 12/26/2022 Overview (12/26/2022): Hydroxychloroquine August [address] Chencho Bautista PETE (obstructive sleep apnea) 2019 Cholelithiasis 02/20/2016 Diarrhea 10/20/2014 Social History Tobacco Use Types Packs/Day Years Used Date Smoking Tobacco: Never Passive Smoke Exposure: Past Smokeless Tobacco: Never Tobacco Cessation:Counseling Given: Not Answered Alcohol Use Standard Drinks/Week Comments No 0 (1 standard drink = 0.6 oz pur e alcohol) [facility] Utilities Answer Date Recorded In the past 12 months has e [employer], gas, oil, or water [employer] threatened to shut off services in your [...] Start Date Job End Date works in [employer] Not on file Not on file [...] Description 06/09/2024 9:30 AM EDT Office Visit [facility] - Gastroenterology [address] [place] [phone] Lorenzo Brown MD [address] [place] [address] 07/16/2024 8:00 AM EDT Office Visit [facility] [address] [place] [address] Program Advisor: Deedee Mclaughlin PA [address] [place] [address] 04/29/2025 10:15 AM EDT Clinical Support [address] [phone] 04/29/2025 10:45 AM EDT Follow-Up [address] [phone] Ebonie Erazo MD [address] [place] [address] Procedures * Due to [place] [employer] law, this organization might not be sharing [...] to Health Maintenance Results * Due to [place] [employer] law, this organization might not be sharing [...] obtain the completed interpretation. ? Workstation ID: [id number] Narrative 05/06/2024 3:44 PM EDT COMPARISON: ??11/12/2016. ?? FINDINGS AND Resulting Agency Comment [id number] Procedure Note Enrique Coffey, - 05/06/2024 COMPARISON: 11/12/2016. FINDINGS AND IMPRESSION: No acute fracture or dislocation. Congenital nonsegmented fifth DIP joint.Mild multifocal degenerative arthropathy of the first MTP and secondthrough fourth DIP joint. If this radiology report contains a blank impression section, it is anincomplete radiology report. Please contact the interpreting radiologistor applicable radiology division as soon as possible to obtain thecompleted interpretation. Workstation ID: [id number] William Barton MD IMG XR PROCEDURES Final Result * Color Fundus Photography - OU - Both Eyes (04/23/2024 3:42 PM EDT) Narrative OPHTHALMOLOGY IMAGING - 04/23/2024 3:42 PM EDT Normal fundus OU Ebonie Erazo MD OPHTH PHOTOGRAPHY Final R esult Performing Organization Address [facility] de Phone Number OPHTHALMOLOGY IMAGING * OCT, Retina - OU - Both Eyes (04/23/2024 3:42 PM EDT) Narrative OPHTHALMOLOGY IMAGING - 04/23/2024 3:42 PM EDT Full, normal OU, no CME OU Ebonie Erazo MD OPHTH TOMOGRAPHY Final Re sult Performing Organization Address [facility] Co de Phone Number OPHTHALMOLOGY IMAGING * Glover Visual Field - OU - Both Eyes (04/23/2024 2:25 PM EDT) Narrative OPHTHALMOLOGY IMAGING - 04/23/2024 3:43 PM EDT Normal HVF OU Ebonie Erazo MD OPHTH VISUAL FIELD Final Result Performing Organization Address [facility] Co de Phone Number OPHTHALMOLOGY IMAGING * Pap w/HPV (12/28/2010 1:37 PM EST) Path Procedure HPV (963251) 1 ?? TPGS ([id number]) 1 ?? Edited by: [id number] ?? [id number] MACGREGD ?? [id number] [facility] Specimen Labeled As: 1 CERVICAL/ENDOCERVI KRUNAL CYTO MATERIAL - Edited by: [id number] NASH [facility] Additional Test Information Specimens were tested for high risk HPV using the FDA approved Digene Hybrid ?? Capture II kit, in the Diagnostic Molecular Oncology Lab at [facility] ?? [facility] Care. ??This test can detect [...] abnormality. ??We endorse the recommendations of the [place] [employer] for ?? Colposcopy and Cervical Pathology [...] clinical laboratory testing. ?? Edited by: [id number] [facility] Diagnosis Thinprep Pap Test ? Adequacy: Satisfactory for evaluation ? Interpretation: Negative for Intraepithelial Lesion or Malignancy ? Inflammation ? This Pap test could not be examined by the ThinPrep Imaging System, [employer], [place], [place], and required a full manual screening. ?- High risk HPV DNA subtypes: NEGATIVE ?? Edited by: [id number] -SCRPT6 ?? [id number] - 3 [facility] - [facility] Gynecologic Clinical Data Specimen source:, THINPREP (CERVICAL AND ENDOCERVICAL) [facility] Gynecologic Clinical Data First date of LMP:, 11/15/10 [facility] Completed Report [id number] CYTOPATH C/V TP SCR 1 [facility] Marker 1 VIDAL PAYNE [facility] Marker 2 HERBERT FAYE [facility] Marker 3 Whit ARDON [facility] Marker 4 MD WOJCIECH NEGATIVE [facility] - [facility] Marker 5 NILM,NILM [facility] Marker 6 RIM,RECEIVED IN MOLECULAR [facility] Cc Results To MEAGHAN BRYAN [id number] [facility] Signature REPORT SIGNED: DAYAMI PAYNE 01/08/11 [facility] Sign Out Audit DAYAMI PAYNE [id number] [facility] [id number] [facility] Cytology / Unknown 1 1:37 PM EST 01/01/2011 1:37 PM EST us Akira An DO LAB HISTORICAL RESULTS Final Res ult [facility] [address] [place] [address], from Last 3 Months or Most Recently Relevant to Health Maintenance Insurance [facility] Member Subscriber Plan / Payer (Ef fective 2023-Present) Name:Shellie Amaro Relation to Subscriber:Self Name:Shellie Amaro Payer ID:[id number] Group ID:Not on file Type:Not on file Address: [facility] [address] [place], [place] [address] [address] Care Teams Stage Electrician Helper Relationship Specialty Start Date End Date William Barton MD [address] [place] [address] PCP - General Family Medicine 01/14/18"
--- OUTSIDE RECORDS SUMMARY | 2024-06-02 19:08 | XMS_ITS | Encounter Summary ---
Author Organization [facility] Address [address] [place] [address] Care Team Providers Care Outboard Motor Tester Name Role Phone William Barton MD Primary Care Provider [phone] Encounter Details Date Type Department Care Team (Late st Contact Info) Description 06/22/2022 Community Orders [facility] EpicCare Link [address] [place] [address] Marielos Cummings MD [address] [place] [address] Bartholin's cyst (Primary Dx) Social History Tobacco Use Types [...] Office Visit [facility] - Gastroenterology [address] [place] [phone] Lorenzo Brown MD [address] [place] [address] 07/16/2024 8:00 AM EDT Office Visit [facility] Rheumatology Clinic [address] [place] [address] Manager Line: Deedee Mclaughlin PA [address] [place] [address] 04/29/2025 10:15 AM EDT Clinical Support [address] [phone] 04/29/2025 10:45 AM EDT Follow-Up [address] [phone] Ebonie Erazo MD [address] [place] [address] documented as of this encounter Visit Diagnoses Diagnosis Bartholin's cyst- Primary Cyst of Bartholin's gland documented in this encounter Care Teams Outboard Motor Tester Relationship Specialty Start Date End Date William Barton MD [address] [place] [phone] PCP - General Family Medicine 01/14/18 documented as of this encounter
== END 2024-06-02 18:41 | disposition left against medical advice (07) ==
PROVIDERS: Emergency Provider Emergency Medicine
DX: R09.A2 Foreign body sensation, throat (principal)